=== PATIENT | male | born 1965 | race Caucasian/White ===

== ENCOUNTER 2019-12-13 11:28 | Outpatient (CLI) | payer MEDICAID, SELFPAY ==
--- NOTE | 2019-12-13 11:40 | XR_ITS ---
WS: [id number] RIGHT HAND: 3 VIEW(S) TECHNIQUE: PA, oblique and lateral. HISTORY: RIGHT HAND PAIN, ABSCESS RIGHT HAND COMPARISON: None available. No acute fracture or dislocation. Focal soft tissue swelling over the dorsal surface of the hand at the level of the metacarpal heads. No underlying bone abnormality. No air in the soft tissues. XR/XR hand RT min 3V* [id number] IMPRESSION: Focal soft tissue edema over the dorsum of the hand. No osteomyelitis.
== END 2019-12-13 11:29 | disposition home or self-care (01) ==
PROVIDERS: PCP Nurse Practitioner Family; Visit Provider Nurse Practitioner Family
DX: M79.641 Pain in right hand (principal); L02.511 Cutaneous abscess of right hand; M79.9 Soft tissue disorder, unspecified
CPT/HCPCS: 73130

== ENCOUNTER 2019-12-17 17:37 | Emergency (ER) | payer MEDICAID, SELFPAY ==
[2019-12-17 18:00] VITALS: BP 134/86; PULSE 87; RESP 19; TEMP 36.7; O2SAT 98; BMI 21.4
--- NOTE | 2019-12-17 18:08 | ED_ITS ---
Entered by Poly Tolentino, acting as scribe for Mahendra Mauro MD Dec 17, 2019 17:37 HPI - Skin/Abscess/Foreign Bdy General: Chief complaint: Skin/Abscess/Foreign Body Stated complaint: hand pain Time Seen by Provider: 12/17/19 18:07 Source: patient and family Mode of arrival: ambulatory Limitations: no limitations History of Present Illness: HPI narrative: 54 yo male presents to ED with an abscess on his R hand. The patient states he had a piece of wire stuck in his R hand about 2 weeks ago. He pulled out the wire and a lot of infection came out. He saw his PCP and was placed on Clindamycin but the wound was not drained. He said the wound is doing better but is still very painful and is open. MD complaint: abscess/boil Onset (ago): week(s) (2) Tetanus up to date: unsure Location: R hand Severity: severe Quality: sharp and constant Pain Consistency: constant Relieving factors: none Exacerbating factors: movement Context: other (wire stuck in R hand) Associated symptoms: Reports no associated symptoms; Deny chills, fever(s), nausea or vomiting Treatments prior to arrival: antibiotic (Clindamycin) Review of Systems Const: Denies: fever or chills Eyes: Denies: change in vision ENMT: Denies: throat pain or mouth pain Card: Denies: chest pain Resp: Denies: shortness of breath GI: Denies: abdominal pain, nausea, vomiting or diarrhea Musc: Denies: back pain or joint pain Skin/Breast: Denies: rash Neuro: Denies: headache or behavioral changes Psych: Denies: depression Endo: Denies: excessive urination Ganesh/Lymph: Denies: easy bruising All/Imm: Denies: hives PFSH ED PFSH: Statuses (acute, chronic, etc) shown below reflect problem list status as previously entered and may not be historically accurate Social History Smoking and tobacco status: current every day smoker Physical Exam Const: COMMON NORMALS: no apparent distress and healthy appearing HENMT: COMMON NORMALS: normocephalic and external nose normal HEAD & SCALP: normocephalic NOSE: external nose normal and no nasal discharge (nasal dischage) Eye: COMMON NORMALS: PERRL PUPIL: Yes PERRL Neck/C-Spine: COMMON NORMALS: full ROM and no lymphadenopathy Chest: COMMONS NORMALS: inspection of chest normal Resp: COMMON NORMALS: normal respiratory effort and clear to auscultation bilaterally AUSCULTATION: clear to auscultation bilaterally Cardio: COMMON NORMALS: regular rate and regular rhythm RATE: regular rate RHYTHM: regular rhythm GI: COMMON NORMALS: soft to palpation PALPATION: Yes soft Extremity: COMMON NORMALS: normal to inspection, full ROM and normal capillary refill Psych: COMMON NORMALS: mental status grossly normal and cooperative Skin: NARRATIVE SKIN EXAM: 2 cm last abscess to the right thenar eminence of his palm with no joint or thumb involvement. He has full range of motion of his thumb with no pain. Procedures Abscess I/D Site: hand Side (if applicable): right Local Anesthetic: lidocaine 1% Technique: incised with #11 blade Amount of fluid expressed (mL): 10 Irrigation: No Packing used?: none Complications: pain Course Vital Signs: Vital signs: Vital Signs Temperature 98.1 F 12/17/19 18:00 Pulse Rate 87 12/17/19 18:00 Respiratory Rate 19 H 12/17/19 18:00 Blood Pressure 134/86 12/17/19 18:00 Pulse Oximetry 98 12/17/19 18:00 MDM - Skin/Abscess/Foreign Bdy MDM Narrative: Medical decision making narrative: Patient presents here with abscess to right thenar eminence. Patient has no foreign body noted. I incised and drained the abscess. Patient is well-appearing here and is stable for discharge. Imaging Data^: right hand: Attestation: I personally reviewed and interpreted this imaging study as follows: My impression: no acute foreign body Discharge Plan Discharge Patient Disposition: Home, Self-Care Clinical Impression: Abscess of skin or subcutaneous tissue Qualifiers: Site of cutaneous abscess: extremity Site of cutaneous abscess of extremity: hand Laterality: right Qualified Code(s): L02.511 - Cutaneous abscess of right hand Condition: Stable Prescriptions: No Action clindamycin HCl 300 mg capsule 300 mg PO Q6H RF: 0 Discharge Orders: Discharge Order (Routine); Ordered 12/17/19 Ordered By: Mahendra Mauro Referrals: AGUSTIN KEARNS FNP [Primary Care Provider] - 4-7 days Discharge Diet: Advance as tolerated Discharge Activity: Resume usual activity Patient Instructions: Abscess (ED) Coding Level of Care Code ED Building Performance Specialist for Chg Fwdaniela The documentation recorded by the Randa arndt Valerie R, accurately reflects the service I personally performed and the decisions made by Nj adams Korby, MD Dec 17, 2019 17:37
--- NOTE | 2019-12-17 18:10 | XRR_ITS ---
PROCEDURE INFORMATION: Exam: XR Right Hand Exam date and time: 12/17/2019 6:36 PM Age: 54 years old Clinical indication: Injury or trauma; Injury history: Piece of metal in hand; Initial encounter; Puncture; Right TECHNIQUE: Imaging protocol: XR Right hand. Views: 3 or more views. COMPARISON: CR XR hand RT min 3V* [id number] 12/13/2019 11:44 AM FINDINGS: Bones/joints: Negative for acute bony abnormality Soft tissues: Prominent soft tissues are present between the 1st and 2nd metacarpal. These findings likely represent edema. Negative for metallic soft tissue foreign bodies. XR/XR hand RT min 3V* [id number] IMPRESSION: No acute findings. Soft tissue edema between the 1st and 2nd metacarpal. Negative for metallic soft tissue foreign body
[2019-12-17] MEDS: HYDROcodone-acetaminophen 7.5-325 mg Tablet 1 TAB PO (18:46)
[2019-12-17 18:57] VITALS: BP 140/86; PULSE 102; RESP 18; TEMP 36.6; O2SAT 99
[2019-12-17 19:02] VITALS: BP 140/86; PULSE 86; RESP 14; TEMP 36.4; O2SAT 99
== END 2019-12-17 19:04 | disposition home or self-care (01) ==
PROVIDERS: Emergency Provider Emergency Medicine; PCP Nurse Practitioner Family
DX: L02.511 Cutaneous abscess of right hand (principal); F17.210 Nicotine dependence, cigarettes, uncomplicated
CPT/HCPCS: 10060; 73130; 99281

== ENCOUNTER 2019-12-27 13:56 | Outpatient (RCR) | payer MEDICAID, SELFPAY | END 2020-01-22 23:59 | disposition home or self-care (01) | LOC: WOUND 13:56 | PROVIDERS: PCP Nurse Practitioner Family; Visit Provider Nurse Practitioner Family | DX: L98.492 Non-pressure chronic ulcer of skin of other sites with fat layer exposed (principal) | CPT/HCPCS: 99204; G0463 ==

== ENCOUNTER → 2021-01-01 12:44 | Outpatient (BNVA) | payer MEDICAID, SELFPAY | PROVIDERS: PCP Nurse Practitioner Family; Visit Provider Internal Medicine Cardiovascular Disease | DX: I10 Essential (primary) hypertension (principal); I49.9 Cardiac arrhythmia, unspecified | CPT/HCPCS: 80048; 83735 ==

== ENCOUNTER 2021-01-31 12:56 | Outpatient (CLI) | payer MEDICAID, SELFPAY ==
--- NOTE | 2021-01-31 12:45 | US_ITS ---
WS: [id number] SCROTAL ULTRASOUND EXAMINATION CLINICAL INFORMATION: R10.32 - Left lower quadrant pain COMPARISON: None. FINDINGS: Status post left inguinal hernia repair. No evidence of recurrent inguinal hernia or fluid collection. TESTES Normal in size and echotexture, without focal lesion. Color Doppler: Normal color Doppler flow pattern. Right testes size: 3.7 cm x 2.5 cm x 2.0 cm. Left testes size: 3.6 cm x 2.3 cm x 1.9 cm. EPIDIDYMIDES Normal in size and echotexture Color Doppler: Normal color Doppler flow pattern. Right epididymal cyst. Right epididymis size: 0.7 cm x 0.9 cm x 0.9 cm. Left epididymitis size: 0.7 cm x 0.8 cm x 0.9 cm. HYDROCELE Bilateral hydroceles left greater than right. VARICOCELE Bilateral varicoceles right greater than left. OTHER FINDINGS Incidental inguinal lymph nodes. US/US scrotum [id number] IMPRESSION: 1. Status post left inguinal hernia repair. No evidence of recurrent inguinal hernia or fluid collection. 2. Normal testicles 3. Right epididymal cysts. 4. Bilateral varicoceles right greater than left. 5. Small bilateral hydroceles left greater than right.
== END 2021-01-31 12:57 | disposition home or self-care (01) ==
PROVIDERS: PCP Nurse Practitioner Family; Visit Provider Surgery
DX: R10.32 Left lower quadrant pain (principal); N43.3 Hydrocele, unspecified; I86.1 Scrotal varices; N50.3 Cyst of epididymis
CPT/HCPCS: 76870

== ENCOUNTER 2021-02-12 10:39 | Outpatient (CLI) | payer MEDICAID, SELFPAY ==
[2021-02-12 10:59] VITALS: BMI 22.0
--- NOTE | 2021-02-12 11:05 | ECG_ITS ---
[facility] Test Date: 2021-02-12 Pat Name: Bob Oliveros Department: Room: Gender: Male Rn Hospice: : 1965 Requested By: Curry Rutledge Order Number: [id number] Mary Beth MD: Curry Rutledge M.D. Interpretive Statements NAME OF STUDY: TREADMILL STRESS ECHOCARDIOGRAM INDICATION: Chest Pain PROCEDURE: The baseline electrocardiogram showed normal sinus rhythm with normal ST-Ts. At the baseline, the patient's blood pressure was 154/89 mm Hg with a heart rate of 80. The patient exercised for 9 minutes and 4 seconds on a standard Emiliano protocol. Patient attained a maximum heart rate of 143 beats per minute(86% of the maximum predicted heart rate) with a blood pressure at the peak exercise of 233/80 mm Hg. The EKG at the peak exercise revealed no significant changes. Patient did not have any chest pain or any significant arrhythmis with the exercise The echocardiographic pictures were taken at the baseline, immediate post exercise and during the recovery phase, at the standard views. During the recovery phase, there were no new changes. Blood pressure at the end of the recovery phase was 149/80 mm Hg with a heart rate of 96 per minute. CONCLUSION: 1. No significant EKG changes with the [treadmill exercise 2. No exercise-induced chest pain or cardiac arrhythmia 3. Fair exercise tolerance, attained a maximum of 10.2 METs 4. Echocardiographic pictures were taken at the standard views; see separate report. Electronically Signed On 02-23-2021 16:44:21 CDT by Curry Rutledge M.D. [id number]
--- NOTE | 2021-02-12 11:30 | USCV_ITS ---
Stress Echo Bob Oliveros Age: 56 Gender: M : 1965 Exam Date: 02/12/2021 11:16 Ordering Phys: Curry Rutledge MD ([email or web address]) Technologist: Exam Location: [facility] [place] Indication: chest pain/ htn Rhythm: Sinus Patient History: Chest pain , Hypertension Cardiac Medications: carvedilol Medications in past 24 hours: Contrast: Stress Results Protocol: Modified Emiliano Total dose(mL): Exercise Duration (min:sec): 9:04 METS: 10.2 Resting HR: 80 Resting BP: 154 / 99 Peak HR: 143 Peak BP: 133 / 104 Max Predicted HR: 166 86 % Max Predicted HR Target HR: 141 Double Product: 41005 Stress Summary: The patient's target heart rate was achieved BP Response: Normal Reason for Termination: Test terminated after reaching target heart rate (85% max predicted) Cardiac Symptoms: None ECG Analysis Resting ECG: Please see separate report Stress ECG: Please see separate report Arrhythmia: Please see separate report MEASUREMENTS (Male/Female) Normal Values FINDINGS The baseline echocardiogram revealed normal LV size with a slightly diminished ejection fraction of 50%. The basal and mid septum and anteroseptal segments were found to be mildly hypokinetic. The aortic root was of normal size. Aortic and mitral valve morphology appears to be normal. With the peak exercise, there was slight augmentation of the baseline mid septum and anteroseptal segments. All the other segments had a good augmentation CONCLUSIONS Possibly normal echocardiographic response to stress, suggesting no significant coronary ischemia Dr Curry Rutledge MD [facility] (Electronically Signed) Final Date: 13 February 2021 10:07 S
[2021-02-12 11:45] VITALS: BP 149/80; PULSE 96
== END 2021-02-12 10:40 | disposition home or self-care (01) ==
PROVIDERS: PCP Nurse Practitioner Family; Visit Provider Internal Medicine Cardiovascular Disease
DX: I10 Essential (primary) hypertension (principal); R07.9 Chest pain, unspecified
CPT/HCPCS: 93017; 93350

== ENCOUNTER 2021-04-04 10:38 | Inpatient (IN) | payer MEDICAID, SELFPAY ==
--- NOTE | 2021-04-04 10:42 | ED_ITS ---
HPI - Abdominal Pain General: Chief Complaint: Abdominal Pain Stated Complaint: ABD PAIN, N/V, L SIDE TENDERNESS Time Seen by Provider: 04/04/21 10:39 Source: patient Mode of arrival: wheelchair Limitations: no limitations History of Present Illness: HPI narrative: abd pain left side, NV MD elicited complaint: abdominal pain Pain Consistency: constant Location: LLQ Severity: moderate Quality: sharp Radiation: LLQ Associated Symptoms: Reports nausea and vomiting; Denies diarrhea, fever(s) and hematemesis Review of Systems General: Reports: 10 or more systems reviewed and unremarkable except in HPI and below Const: Denies: fever(s) GI: Reports: abdominal pain, nausea and vomiting; Denies: hematemesis or diarrhea PFSH ED PFSH: Medical History Bipolar 1 disorder Chest pain History of amputation of finger History of hypertension Hx of chest pain Hx of migraine headaches OCD (obsessive compulsive disorder) Schizo affective schizophrenia Tobacco use Surgical History Hx of shoulder surgery Family History Mother Myocardial infarction CAD (coronary artery disease) Diabetes Lung disease Stroke Father Myocardial infarction Stroke Father CAD (coronary artery disease) Grandfather Stroke Other FH: Hampton's chorea Denies family history of Clotting disorder Dementia Chronic kidney disease (CKD) Suicide Anesthesia complication Bleeding disorder Cancer Social History Smoking and tobacco status: current every day smoker cigarettes Alcohol intake: former Physical Exam Const: COMMON NORMALS: no acute distress, patient oriented x3, no limitations and alert GENERAL APPEARANCE: cooperative and comfortable ORIENTATION/CONSCIOUSNESS: Yes awake, Yes oriented to person, Yes oriented to place and Yes oriented to time HENMT: COMMON NORMALS: normocephalic, atraumatic, external ears normal, EAC's normal, TM's normal bilaterally and Normal external nose present HEAD & SCALP: normal to inspection, normocephalic and atraumatic FACE & SINUS: normal facial exam, sinuses nontender and face symmetric NOSE: Normal external nose present, Normal nares present and No nasal discharge present EXTERNAL EAR: Yes external ears normal EXTERNAL AUDITORY CANAL: EAC's normal TYMPANIC MEMBRANE: TM's normal bilaterally MOUTH: Normal oral and palatal mucosa present, lip normal and tongue normal THROAT: posterior oropharynx normal, tonsils normal and uvula midline Eye: COMMON NORMALS: Equal, round and reactive pupils present, EOMs intact bilaterally and conjunctivae normal GENERAL EYE: appearance normal, both eyes and all related structures and normal light reflex EYELID: eyelids normal CONJUNCTIVA: Yes conjunctivae normal PUPIL: Yes Equal, round and reactive pupils present EOM: Yes EOM abnormal DIRECT OPHTHALMOSCOPY: Yes normal light reflex Neck/C-Spine: COMMON NORMALS: full ROM, no lymphadenopathy, supple, no meningeal signs, no JVD and Thyroid normal GENERAL: Yes normal visual inspection THYROID: Thyroid normal CERVICAL SPINE: Yes cervical ROM normal and Yes normal cervical lordosis Lymph: LYMPHATIC: no lymphadenopathy noted Chest: COMMONS NORMALS: normal inspection of the chest and normal palpation of entire chest wall Resp: COMMON NORMALS: normal respiratory effort, No retractions and clear to auscultation bilaterally AUSCULTATION: clear to auscultation bilaterally Cardio: COMMON NORMALS: no JVD, regular rate, regular rhythm, S1 normal heart sound present, S2 normal heart sound present, No gallops present (Cardio), No clicks present (Cardio), No murmurs present (Cardio), No rub (Cardio) and Peripheral pulses 2+ throughout RATE: regular rate RHYTHM: regular rhythm HEART SOUNDS: S1 normal heart sound present and S2 normal heart sound present PERIPHERAL PULSES: Peripheral pulses 2+ throughout GI: COMMON NORMALS: Normal to inspection, nondistended, normoactive bowel sounds present, Soft to palpation, non-tender and no masses AUSCULTATION: Yes normoactive bowel sounds PALPATION: Yes Soft to palpation, Yes Tenderness to palpation present (GI) Details: LLQ and Yes Guarding due to palpation present (GI) in the LLQ RECTAL EXAM: Yes deferred : COMMON NORMALS: Yes no CVA tenderness BLADDER/KIDNEY EXAM: Yes no CVA tenderness Back/Pelvis: COMMON NORMALS: no CVA tenderness, thoracic and lumbar spine normal to inspection, no thoracic nor lumbar tenderness and thoraco-lumbar ROM normal Extremity: COMMON NORMALS: normal to inspection, full ROM, capillary refill normal, no joint enlargement, no clubbing, cyanosis or edema, no calf tenderness and no pedal edema GENERAL: Yes normal exam except as noted Neuro: COMMON NORMALS: patient oriented x3, moves all extremities, no focal motor deficits, no sensory deficits noted and gait normal SENSORIU M/ORIENTATION: Yes alert, Yes oriented to person, Yes oriented to place and Yes oriented to time MENINGEAL SIGNS: Yes no meningeal signs Psych: COMMON NORMALS: mental status grossly normal, Normal thought process present, cooperative, normal affect, speech normal and activity/motor behavior normal SPEECH: Yes normal speech THOUGHT PROCESS: Normal thought process present Skin: COMMON NORMALS: no rashes or lesions noted, no wounds and turgor normal GENERAL SKIN EXAM: no rashes or lesions noted and turgor normal Course ED course: Pt presents to ER with complaints of ABD pain and NV with no diarrhea. Pt LLQ is noticably tender and he is guarding during examination. CT abd pelvis and labs ordered. Pain and nausea meds pending. Reevaluation(s): Reevaluation #1: Pt has 3mm stone in left distal ureter. Pain meds readminstered and is improving now. Awaiting lactic acid. Likely indication for admission. IV antibx started. UTI present with positve leuk estrase, nitrates, and over 40-50 WBCs. CBC reveals WBC of 19.8. Time: 14:11 Consultations: Consultation #1: Pt admit outpatient to Dr. Casiano for UTI and kidney stone. Lactic normal. WBC elevated. Afebrile. Time: 15:40 Consultation #2: Awaiting to hear back from Dr. Casiano; checking with Dr. Gandhi. Time: 16:11 Vital Signs: Vital signs: Vital Signs Temperature 98.4 F 04/04/21 10:58 Pulse Rate 87 04/04/21 14:53 Respiratory Rate 16 04/04/21 14:53 Blood Pressure 136/77 04/04/21 14:53 Pulse Oximetry 97 04/04/21 14:53 MDM - Abdominal Pain Lab Data: Labs: Lab Results 04/04/21 04/04/21 04/04/21 Range/Units 11:09 11:09 12:50 WBC 19.8 H (4.0-10.0) 10^3/ uL RBC 5.87 H (4.1-5.3) 10^6/u L Hgb 17.6 H (11.7-16.6) g/dL Hct 53.5 H (42.0-52.0) % MCV 91.1 (80-94) fL MCH 30.0 (28.0-34.0) pg MCHC 32.9 (30.0-36.0) g/dL RDW 12.5 (12.1-15.1) % Plt Count 312 (130-400) 10^3/c mm MPV 11.3 H (7.4-10.4) fL Neut % (Auto) 81.8 % Lymph % (Auto) 10.1 % [place] % (Auto) 6.1 % Eos % (Auto) 0.7 % Baso % (Auto) 0.7 % Neut # (Auto) 16.26 H (1.8-7.7) 10^3/u L Lymph # (Auto) 2.0 (0.8-4.8) 10^3/u L [place] # (Auto) 1.2 H (0.2-0.9) 10^3/u L Eos # (Auto) 0.1 (0.0-0.8) 10^3/u L Baso # (Auto) 0.1 (0.0-0.1) 10^3/u L Nucleated RBC % (a uto) 0 % Nucleated RBCs # 0.0 /100WBC Sodium 140 (136-145) mmol/L Potassium 4.6 (3.5-5.1) mmol/L Chloride 102 (98-107) mmol/L Carbon Dioxide 27 (22-29) mmol/L Anion Gap 15.6 (5-19) BUN 17 (6-20) mg/dL Creatinine 1.2 (0.7-1.2) mg/dL GFR Calculation 63.1 L (90-130) mL/min Glucose 142 H (65-115) mg/dL Calculated Osmolal ity 294 (285-295) mOsm/k g Lactate (0.5-2.2) mmol/L Calcium 10.2 (8.5-10.5) mg/dL Total Bilirubin 0.6 (0.15-1.2) mg/dL AST 17 (0-40) U/L ALT 12 (0-41) U/L Alkaline Phosphata se 99 (40-130) IU/L C-Reactive Protein 1.8 (0.0-4.9) mg/L Total Protein 8.3 (6.6-8.7) g/dL Albumin 5.1 (3.5-5.2) g/dL Globulin 3.2 (1.3-4.6) g/dL Amylase 62 (28-100) U/L Lipase 22 (13-60) U/L Urine Color Brown (Yellow) Urine Appearance Cloudy (CLEAR) Urine pH 5 (5-7) Ur Specific Gravit y 1.015 (1.005-1.030) Urine Protein Trace (Negative) Urine Glucose (UA) Norm (Normal) Urine Ketones Negative (Negative) Urine Blood 3+ H (Negative) Urine Nitrate Positive H (Negative) Urine Bilirubin Neg (Negative) Urine Urobilinogen Norm (Negative) mg/dL Ur Leukocyte Cande ase 2+ H (Negative) Urine RBC 40-50 H (0-2) /hpf Urine WBC 25-40 H (0-5) /hpf Ur Squamous Epith Cells 0-4 H (0-5) /hpf Amorphous Sediment Not Reportable Urine Bacteria 4+ H (NONE) /hpf 04/04/21 Range/Units 14:20 WBC (4.0-10.0) 10^3/ uL RBC (4.1-5.3) 10^6/u L Hgb (11.7-16.6) g/dL Hct (42.0-52.0) % MCV (80-94) fL MCH (28.0-34.0) pg MCHC (30.0-36.0) g/dL RDW (12.1-15.1) % Plt Count (130-400) 10^3/c mm MPV (7.4-10.4) fL Neut % (Auto) % Lymph % (Auto) % [place] % (Auto) % Eos % (Auto) % Baso % (Auto) % Neut # (Auto) (1.8-7.7) 10^3/u L Lymph # (Auto) (0.8-4.8) 10^3/u L [place] # (Auto) (0.2-0.9) 10^3/u L Eos # (Auto) (0.0-0.8) 10^3/u L Baso # (Auto) (0.0-0.1) 10^3/u L Nucleated RBC % (a uto) % Nucleated RBCs # /100WBC Sodium (136-145) mmol/L Potassium (3.5-5.1) mmol/L Chloride (98-107) mmol/L Carbon Dioxide (22-29) mmol/L Anion Gap (5-19) BUN (6-20) mg/dL Creatinine (0.7-1.2) mg/dL GFR Calculation (90-130) mL/min Glucose (65-115) mg/dL Calculated Osmolal ity (285-295) mOsm/k g Lactate 0.9 (0.5-2.2) mmol/L Calcium (8.5-10.5) mg/dL Total Bilirubin (0.15-1.2) mg/dL AST (0-40) U/L ALT (0-41) U/L Alkaline Phosphata se (40-130) IU/L C-Reactive Protein (0.0-4.9) mg/L Total Protein (6.6-8.7) g/dL Albumin (3.5-5.2) g/dL Globulin (1.3-4.6) g/dL Amylase (28-100) U/L Lipase (13-60) U/L Urine Color (Yellow) Urine Appearance (CLEAR) Urine pH (5-7) Ur Specific Gravit y (1.005-1.030) Urine Protein (Negative) Urine Glucose (UA) (Normal) Urine Ketones (Negative) Urine Blood (Negative) Urine Nitrate (Negative) Urine Bilirubin (Negative) Urine Urobilinogen (Negative) mg/dL Ur Leukocyte Cande ase (Negative) Urine RBC (0-2) /hpf Urine WBC (0-5) /hpf Ur Squamous Epith Cells (0-5) /hpf Amorphous Sediment Urine Bacteria (NONE) /hpf Imaging Data ^: CT Abd/Pel: Radiologist's impression: [address] [address] [address] Scan Report Signed Patient: Bob Oliveros Unit #: [id number] : 1965 Age/Sex: 56 / M ADM Date: 04/04/21 Loc: ER Room/Bed: Attending Dr: Ordering Provider/Ordering MD: Fe Cam NP Date of Service: 04/04/21 Procedure(s): CT abdomen wo/w con [id number] Accession Number(s): [id number] Report Number: [id number] WS: [id number] CT ABDOMEN/PELVIS WITH AND WITHOUT CONTRAST. HISTORY: Left-sided tenderness with abdominal pain, nausea and vomiting. Technique: All [facility] scans at [facility] use at least one of these dose optimization techniques: automated exposure control; mA and/or kV adjustment per patient size (includes targeted exams where dose is matched to clinical indication); or iterative reconstruction. DLP: 1390.83 mGy.cm COMPARISON: 10/15/2017. Contrast: Omnipaque 300; 95 cc IV. Lung bases are clear. No cardiomegaly. Small hiatal hernia. Normal size liver and spleen. No bile duct dilatation. Normal portal vein. Negative gallbladder. Negative adrenal glands. There are a few small calcifications within the pancreas. No duct dilatation or acute pancreatitis. Very mild atherosclerosis aorta. No ascites or adenopathy. There are a few small retroperitoneal and mesenteric lymph nodes which may be reactive. RIGHT kidney: Normal size kidney with no obstruction. Cortical cyst lower pole measures 6 mm. LEFT kidney: Mildly enlarged LEFT kidney with perinephric stranding and edema. Nonobstructing 2 mm calcification in the lower pole. Mild hydro-ureteronephrosis secondary to a 3 mm calcification in the distal ureter. There is delayed excretion from the LEFT kidney. No abscess. Mild constipation. The appendix is only partially visualized and normal. No GI tract obstruction. Mild prostate gland enlargement with moderate prostate calcifications. Small bilateral hydroceles. No osteoblastic or osteolytic bone disease. CT/CT abdomen wo/w con [id number] IMPRESSION: 1. Mild LEFT hydroureteronephrosis secondary to a 3 mm distal ureteral calcification. Delayed excretion from the LEFT kidney. 2. Mild fecal retention. 3. Visualized appendix is normal. Dictated By: Tomeka Choe DO Signed By: Tomeka Choe DO Signed Date/Time: 04/04/21 1242 DD/ 1234 Discharge Plan Discharge Prescriptions: No Action aspirin [Adult Aspirin Regimen] 81 mg tablet,delayed release (DR/EC) 81 mg PO QAM RF: 0 nitroglycerin [Nitrostat] 0.4 mg tablet, sublingual 0.4 mg sublingual Q5M PRN (Reason: Chest Pain) RF: 0 carvedilol 6.25 mg tablet 6.25 mg PO BID 30 Days Qty: 60 RF: 5 ibuprofen 200 mg Tablet 800 mg PO PRN RF: 0 lisinopril-hydrochlorothiazide 10-12.5 mg tablet 1 tab PO DAILY RF: 0 Coding Level of Care Code ED Manager Market Research for Chrisg Fwd Exam Comprehensive
[2021-04-04 10:58] VITALS: BP 169/110; PULSE 84; RESP 18; TEMP 36.9; O2SAT 96; BMI 22.8
--- NOTE | 2021-04-04 11:22 | CT_ITS ---
WS: [id number] CT ABDOMEN/PELVIS WITH AND WITHOUT CONTRAST. HISTORY: Left-sided tenderness with abdominal pain, nausea and vomiting. Technique: All CT scans at [facility] use at least one of these dose optimization techniq ues: automated exposure control; mA and/or kV adjustment per patient size (includes targeted exams wh ere dose is matched to clinical indication); or iterative reconstruction. DLP: 1390.83 mGy.cm COMPARISON: 10/15/2017. Contrast: Omnipaque 300; 95 cc IV. Lung bases are clear. No cardiomegaly. Small hiatal hernia. Normal size liver and spleen. No bile duct dilatation. Normal portal vein. Negative gallbladder. Nega tive adrenal glands. There are a few small calcifications within the pancreas. No duct dilatation or acute pancreatitis. Very mild atherosclerosis aorta. No ascites or adenopathy. There are a few small retroperitoneal and mesenteric lymph nodes which may be reactive. RIGHT kidney: Normal size kidney with no obstruction. Cortical cyst lower pole measures 6 mm. LEFT kidney: Mildly enlarged LEFT kidney with perinephric stranding and edema. Nonobstructing 2 mm ca lcification in the lower pole. Mild hydro-ureteronephrosis secondary to a 3 mm calcification in the d istal ureter. There is delayed excretion from the LEFT kidney. No abscess. Mild constipation. The appendix is only partially visualized and normal. No GI tract obstruction. Mild prostate gland enlargement with moderate prostate calcifications. Small bilateral hydroceles. No osteoblastic or osteolytic bone disease.
--- NOTE | 2021-04-04 11:30 | CT_ITS ---
WS: [id number] CT ABDOMEN/PELVIS WITH AND WITHOUT CONTRAST. HISTORY: Left-sided tenderness with abdominal pain, nausea and vomiting. Technique: All CT scans at [facility] use at least one of these dose optimization techniq ues: automated exposure control; mA and/or kV adjustment per patient size (includes targeted exams wh ere dose is matched to clinical indication); or iterative reconstruction. DLP: 1390.83 mGy.cm COMPARISON: 10/15/2017. Contrast: Omnipaque 300; 95 cc IV. Lung bases are clear. No cardiomegaly. Small hiatal hernia. Normal size liver and spleen. No bile duct dilatation. Normal portal vein. Negative gallbladder. Nega tive adrenal glands. There are a few small calcifications within the pancreas. No duct dilatation or acute pancreatitis. Very mild atherosclerosis aorta. No ascites or adenopathy. There are a few small retroperitoneal and mesenteric lymph nodes which may be reactive. RIGHT kidney: Normal size kidney with no obstruction. Cortical cyst lower pole measures 6 mm. LEFT kidney: Mildly enlarged LEFT kidney with perinephric stranding and edema. Nonobstructing 2 mm ca lcification in the lower pole. Mild hydro-ureteronephrosis secondary to a 3 mm calcification in the d istal ureter. There is delayed excretion from the LEFT kidney. No abscess. Mild constipation. The appendix is only partially visualized and normal. No GI tract obstruction. Mild prostate gland enlargement with moderate prostate calcifications. Small bilateral hydroceles. No osteoblastic or osteolytic bone disease. CT/CT abdomen pelvis wo/w [id number] IMPRESSION: 1. Mild LEFT hydroureteronephrosis secondary to a 3 mm distal ureteral calcifi cation. Delayed excretion from the LEFT kidney. 2. Mild fecal retention. 3. Visualized appendix is normal.
[2021-04-04 11:33] LABS: Basophils # 0.1 10^3/uL (0.0-0.1); Basophils % 0.7 %; Eosinophils # 0.1 10^3/uL (0.0-0.8); Eosinophils % 0.7 %; Hematocrit 53.5 % (42.0-52.0); Hemoglobin 17.6 g/dL (11.7-16.6); Lymphocytes % 10.1 %; Mean Corpuscular HGB Conc 32.9 g/dL (30.0-36.0); Mean Corpuscular Volume 91.1 fL (80-94); Mean Platelet Volume 11.3 fL (7.4-10.4); Monocytes # 1.2 10^3/uL (0.2-0.9); Monocytes % 6.1 %; Neutrophils # 16.26 10^3/uL (1.8-7.7); Neutrophils % 81.8 %; Nucleated Red Blood Cells % 0 %; Platelet Count 312 10^3/cmm (130-400); Red Blood Count 5.87 10^6/uL (4.1-5.3); Red Cell Distribution Width 12.5 % (12.1-15.1); White Blood Count 19.8 10^3/uL (4.0-10.0)
[2021-04-04 11:46] LABS: Alanine Aminotransferase 12 U/L (0-41); Albumin Level 5.1 g/dL (3.5-5.2); Alkaline Phosphatase 99 IU/L (40-130); Amylase 62 U/L (28-100); Anion Gap 15.6 (5-19); Aspartate Amino Transferase 17 U/L (0-40); Blood Urea Nitrogen 17 mg/dL (6-20); C Reactive Protein 1.8 mg/L (0.0-4.9); Calcium 10.2 mg/dL (8.5-10.5); Carbon Dioxide 27 mmol/L (22-29); Chloride 102 mmol/L (98-107); Globulin 3.2 g/dL (1.3-4.6); Glomerular Filtration Rate 63.1 mL/min (90-130); Glucose 142 mg/dL (65-115); Lipase 22 U/L (13-60); Osmolality Calculated 294 mOsm/kg (285-295); Potassium 4.6 mmol/L (3.5-5.1); Sodium 140 mmol/L (136-145); Total Bilirubin 0.6 mg/dL (0.15-1.2); Total Protein 8.3 g/dL (6.6-8.7)
[2021-04-04 11:47] VITALS: RESP 20
[2021-04-04] MEDS: morphine 4 mg/mL SDV 1 mL IVP (11:47)
[2021-04-04] MEDS: ondansetron 2 mg/ML SDV 2 mL 4 MG IVP (11:48)
[2021-04-04] MEDS: iohexol 300 mg/mL 100 mL Btl IV (12:26)
[2021-04-04 13:08] LABS: Protein Urine Trace (Negative); Specific Gravity, Urine 1.015 (1.005-1.030); Urine Appearance Cloudy (CLEAR); Urine Color Brown (Yellow); pH Urine 5 (5-7)
[2021-04-04 13:09] LABS: Add Urine Microscopic? YES; Bilirubin Urine Neg (Negative); Blood Urine 3+ (Negative); Glucose Urine UA Norm (Normal); Ketones Urine Negative (Negative); Leukocyte Esterase Urine 2+ (Negative); Nitrate Urine Positive (Negative); Urobilinogen Urine Norm (Negative)
[2021-04-04 13:11] VITALS: BP 174/102; PULSE 87; RESP 21; O2SAT 98
[2021-04-04] MEDS: ketorolac 30 mg/mL INJ IVP ×2 (13:46→22:12)
[2021-04-04] MEDS: cefTRIAXone 1,000 MG in sodium chloride 0.9% (plus) 50 ML 100 MG IV (13:46)
[2021-04-04 13:48] LABS: Bacteria Urine 4+ /hpf; RBC Urine 40-50 /hpf (0-2); Squamous Epithelial Cell Urine 0-4 /hpf (0-5); WBC Urine 25-40 /hpf (0-5)
[2021-04-04 13:49] LABS: Add Urine Culture? Yes
[2021-04-04] MEDS: tamsulosin 0.4 mg Capsule PO (14:04)
[2021-04-04] MEDS: sodium chloride 0.9% 500 ML 1000 ML IV (14:04)
[2021-04-04 14:53] VITALS: BP 136/77; PULSE 87; RESP 16; O2SAT 97
[2021-04-04 15:14] LABS: Lactate (Lactic Acid level) 0.9 mmol/L (0.5-2.2)
--- NOTE | 2021-04-04 16:59 | PM.HP ---
Providers/Chief Complaint Admitting Physician: Jocelyn Casiano MD Primary Care Provider: Cortney Matthew Chief Complaint: ABD PAIN, N/V, L SIDE TENDERNESS History of Present Illness Bob Oliveros is a 56 year old male who presented to the emergency room with chief complaint of abdominal pain, nausea, vomiting. Since has been going on for about a week or so and progressively worsening. Pain is located primarily in the left sided quadrants extending from mid abdomen down into the groin. It extends to the flank. It is sharp and severe. Worse with movement of any kind. He has been unable to get relief. Rates it at a 10 out of 10 at its worst. Initially fluctuated but has been constant. He had several episodes of vomiting today. Remains nauseated. Had a bowel movement this morning. Denies any diarrhea or constipation. Has noted some decreased urine output. Denied any hematuria. Has not had any fever. He has felt miserable. Work-up in the emergency room revealed a 3 mm left-ureteral kidney stone with some mild hydronephrosis as well as perinephric stranding. White count was 19,000. Lactic acid was normal. Urine showed 3+ blood with positive nitrites and leukocyte esterase. He received some IV fluids, Rocephin as well as pain control in the emergency room. He is being admitted for further evaluation and treatment. Review of Systems Const: Reports: change in appetite, change in weight (Weight loss) and malaise; Denies: fever(s) or chills ENMT: Reports: dry mouth Card: Denies: chest pain or palpitations Resp: Denies: dyspnea, productive cough or non-productive cough GI: Reports: abdominal pain, nausea, vomiting and diarrhea; Denies: constipation, hematochezia or melena : Reports: flank pain, difficulty urinating and oliguria; Denies: dysuria or hematuria Musc: Reports: other (Generalized aches and pains) Skin/Breast: Denies: rash or sores Neuro: Reports: other (Restless from the pain); Denies: headache(s) Ganesh/Lymph: Denies: easy bleeding Medications/Allergies Home Medications Medication Instructions Recorded Confirmed Last Taken Type aspirin 81 mg tablet,delayed 81 mg PO QAM 11/21/20 04/04/21 04/02/21 History release nitroglycerin 0.4 mg sublingual 0.4 mg SUBLINGUAL Q5M PRN 11/21/20 04/04/21 Unknown History tablet carvedilol 6.25 mg tablet 6.25 mg PO BID 30 Days #60 tab 03/05/21 04/04/21 04/02/21 Rx ibuprofen 800 mg PO PRN 04/04/21 04/04/21 Unknown History lisinopril-hydrochlorothiazide 1 tab PO DAILY 04/04/21 04/04/21 Unknown History Allergies Allergy/AdvReac Type Severity Reaction Status Date / Time alprazolam [From Xanax] AdvReac Intermediate ADR-Agitate Verified 04/04/21 18:16 d Additional Medication Information I personally reviewed home medication list and medications received day of admission thus far. PFSH Acute PFSH: Medical History (Updated 04/04/21 @ 19:03 by Jocelyn Casiano MD) Bilateral varicoceles Bipolar 1 disorder History of hypertension History of kidney stones Hx of chest pain Hx of migraine headaches OCD (obsessive compulsive disorder) Schizo affective schizophrenia Tobacco use Ventricular arrhythmia Surgical History (Updated 04/04/21 @ 18:50 by Jocelyn Casiano MD) 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, right hand Hx of shoulder surgery S/P left inguinal hernia repair (~2016) Laparoscopic Transabdominal preperitoneal (CASSIA) approach Family History Mother Myocardial infarction CAD (coronary artery disease) Diabetes Lung disease Stroke Father Myocardial infarction Stroke Father CAD (coronary artery disease) Grandfather Stroke Other FH: [place]'s chorea Denies family history of Clotting disorder Dementia Chronic kidney disease (CKD) Suicide Anesthesia complication Bleeding disorder Cancer Social History (Updated 04/04/21 @ 18:52 by Jocelyn Casiano MD) Smoking and tobacco status: current every day smoker cigarettes Alcohol intake: former Substance/Drug Use: current Substance/Drug use frequency: daily Substance/Drug use type: Marijuana Vitals/I&O/Wt Last Vital Signs Temp 98.4 F 04/04/21 10:58 Pulse 87 04/04/21 14:53 Resp 16 04/04/21 14:53 BP 136/77 04/04/21 14:53 Pulse Ox 97 04/04/21 14:53 Weight last 48 hrs Weight 68.039 kg Physical Exam Narrative: EXAM NARRATIVE: Constitutional: Restless, thin build, obviously uncomfortable HEENT: Mild bitemporal wasting noted, dry mucous membranes, keeps his tongue protruded, extraocular movements intact Neck: Supple Respiratory: Clear to auscultation bilaterally Cardiovascular: Regular rate and rhythm Abdomen: Soft, decreased bowel sounds, tender to palpation in the mid left-sided abdomen extending into the left lower quadrant and left flank area, no rebound or guarding but unable to sit still : Presently unable to get in a position that I can adequately remove clothing to further examine Extremities: No pitting edema, loss of digits to the right hand Skin: Dry Neuro: Speech is clear, moves all extremities Psych: Easily agitated but also easily calm down Data : 04/04/21 11:09 04/04/21 11:09 Other data: Laboratory Results WBC 19.8 10^3/uL (4.0-10.0) H 04/04/21 11:09 RBC 5.87 10^6/uL (4.1-5.3) H 04/04/21 11:09 Hgb 17.6 g/dL (11.7-16.6) H 04/04/21 11:09 Hct 53.5 % (42.0-52.0) H 04/04/21 11:09 MCV 91.1 fL (80-94) 04/04/21 11:09 MCH 30.0 pg (28.0-34.0) 04/04/21 11:09 MCHC 32.9 g/dL (30.0-36.0) 04/04/21 11:09 RDW 12.5 % (12.1-15.1) 04/04/21 11:09 Plt Count 312 10^3/cmm (130-400) 04/04/21 11:09 MPV 11.3 fL (7.4-10.4) H 04/04/21 11:09 Neut % (Auto) 81.8 % 04/04/21 11:09 Lymph % (Auto) 10.1 % 04/04/21 11:09 [place] % (Auto) 6.1 % 04/04/21 11:09 Eos % (Auto) 0.7 % 04/04/21 11:09 Baso % (Auto) 0.7 % 04/04/21 11:09 Neut # (Auto) 16.26 10^3/uL (1.8-7.7) H 04/04/21 11:09 Lymph # (Auto) 2.0 10^3/uL (0.8-4.8) 04/04/21 11:09 [place] # (Auto) 1.2 10^3/uL (0.2-0.9) H 04/04/21 11:09 Eos # (Auto) 0.1 10^3/uL (0.0-0.8) 04/04/21 11:09 Baso # (Auto) 0.1 10^3/uL (0.0-0.1) 04/04/21 11:09 Nucleated RBC % (auto) 0 % 04/04/21 11:09 Nucleated RBCs # 0.0 /100WBC 04/04/21 11:09 Sodium 140 mmol/L (136-145) 04/04/21 11:09 Potassium 4.6 mmol/L (3.5-5.1) 04/04/21 11:09 Chloride 102 mmol/L (98-107) 04/04/21 11:09 Carbon Dioxide 27 mmol/L (22-29) 04/04/21 11:09 Anion Gap 15.6 (5-19) 04/04/21 11:09 BUN 17 mg/dL (6-20) 04/04/21 11:09 Creatinine 1.2 mg/dL (0.7-1.2) 04/04/21 11:09 GFR Calculation 63.1 mL/min (90-130) L 04/04/21 11:09 Glucose 142 mg/dL (65-115) H 04/04/21 11:09 Calculated Osmolality 294 mOsm/kg (285-295) 04/04/21 11:09 Lactate 0.9 mmol/L (0.5-2.2) 04/04/21 14:20 Calcium 10.2 mg/dL (8.5-10.5) 04/04/21 11:09 Total Bilirubin 0.6 mg/dL (0.15-1.2) 04/04/21 11:09 AST 17 U/L (0-40) 04/04/21 11:09 ALT 12 U/L (0-41) 04/04/21 11:09 Alkaline Phosphatase 99 IU/L (40-130) 04/04/21 11:09 C-Reactive Protein 1.8 mg/L (0.0-4.9) 04/04/21 11:09 Total Protein 8.3 g/dL (6.6-8.7) 04/04/21 11:09 Albumin 5.1 g/dL (3.5-5.2) 04/04/21 11:09 Globulin 3.2 g/dL (1.3-4.6) 04/04/21 11:09 Amylase 62 U/L (28-100) 04/04/21 11:09 Lipase 22 U/L (13-60) 04/04/21 11:09 Urine Color Brown (Yellow) 04/04/21 12:50 Urine Appearance Cloudy (CLEAR) 04/04/21 12:50 Urine pH 5 (5-7) 04/04/21 12:50 Ur Specific [place] 1.015 (1.005-1.030) 04/04/21 12:50 Urine Protein Trace (Negative) 04/04/21 12:50 Urine Glucose (UA) Norm (Normal) 04/04/21 12:50 Urine Ketones Negative (Negative) 04/04/21 12:50 Urine Blood 3+ (Negative) H 04/04/21 12:50 Urine Nitrate Positive (Negative) H 04/04/21 12:50 Urine Bilirubin Neg (Negative) 04/04/21 12:50 Urine Urobilinogen Norm mg/dL (Negative) 04/04/21 12:50 Ur Leukocyte Esterase 2+ (Negative) H 04/04/21 12:50 Urine RBC 40-50 /hpf (0-2) H 04/04/21 12:50 Urine WBC 25-40 /hpf (0-5) H 04/04/21 12:50 Ur Squamous Epith Cells 0-4 /hpf (0-5) H 04/04/21 12:50 Amorphous Sediment Not Reportable 04/04/21 12:50 Urine Bacteria 4+ /hpf (NONE) H 04/04/21 12:[address] 04/04/21 11:22 IMPRESSION: 1. Mild LEFT hydroureteronephrosis secondary to a 3 mm distal ureteral calcification. Delayed excretion from the LEFT kidney. 2. Mild fecal retention. 3. Visualized appendix is normal. TREADMILL STRESS ECHOCARDIOGRAM 02/12/2021 INDICATION: Chest Pain PROCEDURE: The baseline electrocardiogram showed normal sinus rhythm with normal ST-Ts. At the baseline, the patient's blood pressure was 154/89 mm Hg with a heart rate of 80. The patient exercised for 9 minutes and 4 seconds on a standard Emiliano protocol. Patient attained a maximum heart rate of 143 beats per minute(86% of the maximum predicted heart rate) with a blood pressure at the peak exercise of 233/80 mm Hg. The EKG at the peak exercise revealed no significant changes. Patient did not have any chest pain or any significant arrhythmis with the exercise The echocardiographic pictures were taken at the baseline, immediate post exercise and during the recovery phase, at the standard views. During the recovery phase, there were no new changes. Blood pressure at the end of the recovery phase was 149/80 mm Hg with a heart rate of 96 per minute. CONCLUSION: 1. No significant EKG changes with the [treadmill exercise 2. No exercise-induced chest pain or cardiac arrhythmia 3. Fair exercise tolerance, attained a maximum of 10.2 METs 4. Echocardiographic pictures were taken at the standard views; FINDINGS The baseline echocardiogram revealed normal LV size with a slightly diminished ejection fraction of 50%. The basal and mid septum and anteroseptal segments were found to be mildly hypokinetic. The aortic root was of normal size. Aortic and mitral valve morphology appears to be normal. With the peak exercise, there was slight augmentation of the baseline mid septum and anteroseptal segments. All the other segments had a good augmentation CONCLUSIONS Possibly normal echocardiographic response to stress, suggesting no significant coronary ischemia A&P Assessment and plan (1) Acute abdominal pain: Left-sided quadrants extending into the groin, left flank, associated with nausea and vomiting Status: Acute (2) Kidney calculus: Left ureteral, 3 mm Status: Acute (3) Hydronephrosis of left kidney: Mild secondary to kidney stone Status: Acute (4) Acute pyelonephritis: As evidenced by perinephric stranding, leukocytosis and urinalysis findings Status: Acute (5) Benign essential HTN: Normally on carvedilol and lisinopril/hydrochlorothiazide Status: Chronic (6) Ventricular arrhythmia: Notated in cardiology records, details not known Status: Chronic (7) Nicotine dependence, cigarettes, uncomplicated: Status: Chronic Additional A&P Information Mild hyperglycemia without a known history of diabetes Inpatient admission Continue IV antibiotics Continue IV fluids Pain control I discussed the case with Dr. Gandhi who will see Mr. At certain consultation We will maintain n.p.o. status for now until we discern if he will need to go to procedure tonight Continue home carvedilol Had stress test in January of this year that did not show significant ischemia Nicotine patch has been offered Smokes marijuana daily Check A1c in am Supportive care otherwise Consultants: Dr Gandhi Pending/ordered tests/procedures to follow: Urine cultures Lines/tubes: peripheral IVs DVT prophylaxis: SCDs, no pharmacological treatment secondary to anticipated intervention Plans, findings and concerns discussed with patient and female in the room with him with his permission and they were given an opportunity to ask questions. Anticipated Disposition: Home Code Status: Full Code Attestations Medical Necessity Statement*: Anticipated stay greater than two midnights inpatient with above findings. Currently requiring IV fluids, IV antibiotics and potential invasive intervention. 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
--- NOTE | 2021-04-04 19:46 | PC.NURSE ---
1924: Pt transported to room 251 per stretcher. Family member has all belongings with exception of deepak which pt. has on. Pt has no specific complaints at this time.
[2021-04-04 20:00] VITALS: BP 140/79; PULSE 95; RESP 18; TEMP 37.8; O2SAT 98
[2021-04-04 20:39] VITALS: PULSE 90; O2SAT 95
--- NOTE | 2021-04-04 20:39 | P.CONIM_ITS ---
Providers/Reason For Consult Consulting Physican/Specialty*: Urology/Gandhi Reason for Consult*: Left distal ureteral stone Attending Physician: Jocelyn Casiano MD Primary Care Provider: Cortney Matthew History of Present Illness History of Present Illness Bob Oliveros is a 56 year old male who have seen in the past for chronic no gross pathology was identified during work-up for that. He was scheduled to see me in February but failed to keep his appointment. He was admitted through the emergency department today for evidence of UTI and a left distal ureteral stone without sepsis. Stone was small, near the left UVJ, and associated only with mild hydronephrosis. Lactic acid was normal but urine did look infected. White count was elevated. CT scan: 3 mm Left UVJ stone He states he has had some off-and-on back pain for about a month over the last week though the pain has become much more severe and he is having increasing lower urinary tract symptoms including frequency urgency and feeling of incomplete emptying. Denies fever or chills. Has not passed stone since admission. Review of Systems Const: Reports: malaise; Denies: fever(s) or chills Eyes: Denies: change in vision ENMT: Denies: throat pain Card: Denies: chest pain or palpitations Resp: Denies: dyspnea or wheezing GI: Reports: abdominal pain, nausea and vomiting : Reports: flank pain, difficulty urinating, dysuria, urinary frequency, urinary urgency and urinary hesitancy Musc: Denies: joint redness or joint warmth Skin/Breast: Denies: rash or changing lesions Neuro: Denies: confusion, Slurred speech present or difficulty communicating thoughts Psych: Denies: anxiety or memory loss Endo: Denies: flushing Ganesh/Lymph: Denies: easy bruising or easy bleeding All/Imm: Denies: urticaria or throat swelling Meds/Allergies Home Medications and Allergies Home Medications Medication Instructions Recorded Confirmed Last Taken Type aspirin 81 mg tablet,delayed 81 mg PO QAM 11/21/20 04/04/21 04/02/21 History release nitroglycerin 0.4 mg sublingual 0.4 mg SUBLINGUAL Q5M PRN 11/21/20 04/04/21 Unknown History tablet carvedilol 6.25 mg tablet 6.25 mg PO BID 30 Days #60 tab 0404/04/21 04/02/21 Rx ibuprofen 800 mg PO PRN 04/04/21 04/04/21 Unknown History lisinopril-hydrochlorothiazide 1 tab PO DAILY 04/04/21 04/04/21 Unknown History Allergies Allergy/AdvReac Type Severity Reaction Status Date / Time alprazolam [From Xanax] AdvReac Intermediate ADR-Agitate Verified 04/04/21 18:16 d PFSH Acute PFSH: Medical History Bilateral varicoceles Bipolar 1 disorder History of hypertension History of kidney stones Hx of chest pain Hx of migraine headaches OCD (obsessive compulsive disorder) Schizo affective schizophrenia Tobacco use Ventricular arrhythmia Surgical History 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, right hand Hx of shoulder surgery S/P left inguinal hernia repair (~2016) Laparoscopic Transabdominal preperitoneal (CASSIA) approach Family History Mother Myocardial infarction CAD (coronary artery disease) Diabetes Lung disease Stroke Father Myocardial infarction Stroke Father CAD (coronary artery disease) Grandfather Stroke Other FH: [place]'s chorea Denies family history of Clotting disorder Dementia Chronic kidney disease (CKD) Suicide Anesthesia complication Bleeding disorder Cancer Social History Smoking and tobacco status: current every day smoker cigarettes Alcohol intake: former Substance/Drug Use: current Substance/Drug use frequency: daily Substance/Drug use type: Marijuana Vitals/I&O/Wt Last Vital Signs Temp 100.1 F H 04/04/21 20:00 Pulse 95 04/04/21 20:00 Resp 18 04/04/21 20:00 BP 140/79 04/04/21 20:00 Pulse Ox 98 04/04/21 20:00 04/04/21 04/04/21 04/04/21 06:59 14:59 22:59 Intake Total 50 / 50 Balance 50 / 50 Weight last 48 hrs Weight 150 lb Physical Exam Const: COMMON NORMALS: no acute distress, alert and well nourished GENERAL APPEARANCE: well kempt and well developed ORIENTATION/CONSCIOUSNESS: not confused HENMT: COMMON NORMALS: normocephalic and atraumatic HEAD & SCALP: normocephalic, atraumatic and other (Edentulous) Eye: COMMON NORMALS: conjunctivae normal and no scleral icterus CONJUNCTIVA: Yes conjunctivae normal Neck/C-Spine: COMMON NORMALS: full ROM GENERAL: Yes normal visual inspection Resp: COMMON NORMALS: normal respiratory effort EFFORT & INSPECTION: No labored and No Actively coughing GI: COMMON NORMALS: Soft to palpation PALPATION: Yes Soft to palpation and Yes Tenderness to palpation present (GI) : BLADDER/KIDNEY EXAM: Yes CVA tenderness MALE GROIN/PERINEUM EXAM: No ecchymosis and No hernia PENIS: normal penis MEATUS: meatus normal, no meatla discharge and No Blood at meatus present SCROTUM: Yes testes descended bilaterally, No edematous and No scrotal swelling TESTES: No absent testicle, No testicular tenderness, No testicular mass, Yes epididymides normal and No epididymal tenderness Back/Pelvis: GENERAL BACK: Yes CVA tenderness CVA tenderness: left Extremity: COMMON NORMALS: no clubbing, cyanosis or edema NARRATIVE EXTREMITY EXAM: Significant portion of his left hand has been removed. Neuro: COMMON NORMALS: no focal motor deficits SENSORIUM/ORIENTATION: Yes alert Psych: COMMON NORMALS: mental status grossly normal APPEARANCE: Yes grossly normal and Yes well kempt ATTITUDE: Yes calm and Yes engaged Skin: COMMON NORMALS: no rashes or lesions noted and no jaundice GENERAL SKIN EXAM: no rashes or lesions noted A&P Assessment and plan (1) Left ureteral calculus: 3 mm left distal ureteral stone with obstruction complicated by acute cystitis. No evidence of sepsis. Plan: KUB in the morning Likely surgical intervention if he has not passed the stone by tomorrow Will be available for emergency intervention if required Status: Acute (2) Hydronephrosis of left kidney: Mild left hydronephrosis from partially obstructing left distal ureteral stone Status: Acute (3) Acute cystitis without hematuria: Status: Acute Consult Attestations Medical Necessity Statement: Requires close observation for obstructing left distal ureteral stone. Small with good chance of passing blood complicated by acute cystitis. No evidence of sepsis. Patient looks stable tonight but not safe for discharge. 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
[2021-04-04] MEDS: carvedilol 6.25 mg Tablet PO (21:17)
[2021-04-04] MEDS: sodium chloride 0.9% 1,000 ML 150 ML IV (21:20)
[2021-04-04] MEDS: famotidine 20 mg/2 mL INJ IVP (21:22)
[2021-04-05] VITALS (18 sets, daily range): BP systolic 97–153; BP diastolic 55–88; PULSE 69–97; RESP 14–20; TEMP 36.3–37.3; O2SAT 93–99
--- NOTE | 2021-04-05 | SCC_ITS ---
Procedure Done: 1. Cystoscopy with left retrograde ureteropyelogram 2. Ureteroscopy, stone extraction, stent 27.5 seconds of fluoroscopic guidance, for a cumulative dose of 3.92 mGy, was provided to Dr. Gandhi by the radiology department. C-arm images of the abdomen were saved for the patient's permanent record. [facility]
[2021-04-05] MEDS: sodium chloride 0.9% 1,000 ML 150 ML IV ×2 (04:06→18:05)
[2021-04-05 06:04] LABS: Basophils # 0.1 10^3/uL (0.0-0.1); Basophils % 0.4 %; Eosinophils # 0.1 10^3/uL (0.0-0.8); Eosinophils % 0.3 %; Hemoglobin 13.7 g/dL (11.7-16.6); Lymphocytes # 1.8 10^3/uL (0.8-4.8); Lymphocytes % 9.2 %; Mean Corpuscular HGB Conc 32.6 g/dL (30.0-36.0); Mean Corpuscular Hemoglobin 30.6 pg (28.0-34.0); Mean Corpuscular Volume 93.8 fL (80-94); Mean Platelet Volume 11.2 fL (7.4-10.4); Monocytes # 1.3 10^3/uL (0.2-0.9); Monocytes % 6.6 %; Neutrophils # 16.52 10^3/uL (1.8-7.7); Nucleated Red Blood Cells % 0 %; Platelet Count 202 10^3/cmm (130-400); Red Blood Count 4.48 10^6/uL (4.1-5.3); Red Cell Distribution Width 12.9 % (12.1-15.1); White Blood Count 19.9 10^3/uL (4.0-10.0)
[2021-04-05 06:15] LABS: Anion Gap 10.4 (5-19); Blood Urea Nitrogen 19 mg/dL (6-20); Calcium 7.9 mg/dL (8.5-10.5); Carbon Dioxide 26 mmol/L (22-29); Chloride 106 mmol/L (98-107); Glomerular Filtration Rate 52.8 mL/min (90-130); Glucose 121 mg/dL (65-115); Osmolality Calculated 290 mOsm/kg (285-295); Potassium 4.4 mmol/L (3.5-5.1); Sodium 138 mmol/L (136-145)
--- NOTE | 2021-04-05 06:21 | XR_ITS ---
WS: [id number] KUB, 04/05/2021 Clinical Data: Follow up Left distal ureteral stone Comparison: CT abdomen and pelvis, 04/04/2021 Findings: No abnormal intraabdominal masses or calcifications are seen. There is no dilatated small bowel or ev idence of obstruction. There is contrast material in the left ureter and there is moderate dilatation of the left ureter joseph n to the left ureterovesical junction. There is probably a small calculus at this level. There is con trast in the bladder. XR/XR KUB [id number] Impression: Probable left UVJ calculus.
--- NOTE | 2021-04-05 07:32 | P.PN_ITS ---
Subjective Subjective: Interval history: UROLOGY follow-up Hospital day #2. Has been afebrile overnight. Vital signs of been stable. White count this morning is slightly increased. Describes pain is improved. Decreased nausea and vomiting. Has less irritative voiding symptoms. Has not passed the stone. Has been diligent about using a urinal. KUB this morning is pending. Because of his increased white count for least persistence of the elevation in the lack of passing a stone I recommended proceeding to surgical intervention this afternoon. We will tentatively plan for around 12 PM. I reviewed the procedure in detail. The plan will be to perform a cystoscopy, LEFT retrograde ureteroscopy laser and stent. Also reviewed that if his clinical and hemodynamic status is more tenuous that we would just place a stent. Reviewed benefits and risks as well as alternatives. Hopefully he can pass the stone before we reach that point but based on the infection and obstructive changes I think intervention makes more sense and if safe then to remove the stone at the same time. Informed consent was obtained Vitals/I&O/Wt Last Vital Signs Temp 97.4 F L 04/05/21 03:37 Pulse 93 04/05/21 03:37 Resp 18 04/05/21 03:37 BP 117/72 04/05/21 03:37 Pulse Ox 98 04/05/21 03:37 04/04/21 04/05/21 04/05/21 22:59 06:59 14:59 Intake Total 550 / 550 1000 / 1550 Output Total 200 / 200 Balance 350 / 350 1000 / 1350 Weight last 48 hrs Weight 150 lb Physical Exam Const: COMMON NORMALS: no acute distress, alert and well nourished GENERAL APPEARANCE: well kempt and well developed ORIENTATION/CONSCIOUSNESS: not confused HENMT: COMMON NORMALS: normocephalic and atraumatic HEAD & SCALP: normocephalic, atraumatic and other (Edentulous) Eye: COMMON NORMALS: conjunctivae normal and no scleral icterus CONJUNCTIVA: Yes conjunctivae normal Neck/C-Spine: COMMON NORMALS: full ROM GENERAL: Yes normal visual inspection Resp: COMMON NORMALS: normal respiratory effort EFFORT & INSPECTION: No labored and No Actively coughing GI: COMMON NORMALS: Soft to palpation PALPATION: Yes Soft to palpation and Yes Tenderness to palpation present (GI) : BLADDER/KIDNEY EXAM: Yes CVA tenderness Back/Pelvis: GENERAL BACK: Yes CVA tenderness CVA tenderness: left Extremity: COMMON NORMALS: no clubbing, cyanosis or edema NARRATIVE EXTREMITY EXAM: Significant portion of his left hand has been removed. Neuro: COMMON NORMALS: no focal motor deficits SENSORIUM/ORIENTATION: Yes alert Psych: COMMON NORMALS: mental status grossly normal APPEARANCE: Yes grossly normal and Yes well kempt ATTITUDE: Yes calm and Yes engaged Skin: COMMON NORMALS: no rashes or lesions noted and no jaundice GENERAL SKIN EXAM: no rashes or lesions noted Data : 04/05/21 04:35 04/05/21 04:35 A&P Assessment and plan (1) Left ureteral calculus: 3 mm left distal ureteral stone with obstruction complicated by acute cystitis. No evidence of sepsis. Plan: KUB pending. Plan for intervention around noon today to retrieve the stone if possible to do safely or just simply place a stent if there is a question about hemodynamic status etc. Informed consent obtained Status: Acute (2) Hydronephrosis of left kidney: Mild left hydronephrosis from partially obstructing left distal ureteral stone Status: Acute (3) Acute cystitis without hematuria: White count still elevated today Status: Acute Attestations Medical Necessity Statement*: See attending Coding Level of Care Code Acute Neonatal Nurse Practitioner for Jerrica Meyer Diagnoses Left ureteral calculus N20.1 Hydronephrosis of left kidney N13.30 Acute cystitis without hematuria N30.00
[2021-04-05] MEDS: famotidine 20 mg/2 mL INJ IVP ×2 (10:05→21:01)
[2021-04-05] MEDS: carvedilol 6.25 mg Tablet PO ×2 (10:05→21:02)
--- NOTE | 2021-04-05 11:24 | PC.CHAP ---
Pastoral Care Encounter/Spiritual Assessment Type of Contact [] Declined fire safety director visit [] Patient/Family/Request visit [] Outpatient visit [] Follow-up visit [] Physician referral [] Code/Alert [x] Routine visit [] Staff referral [] Actively dying [] Patient sleeping [] Family support [] [] Out of room [] Palliative care [] [x] Receiving care in room [] Pre-surgical visit [] Trauma [] Long length of stay [] ICU visit [] Other: Relational/Emotional Strength [x] Patient feels connected with others/family/visitors/staff [] Distress [] Loneliness/isolation [] Abandonment Spirituality of Patient [x] Person of Thao [] Attends Sabianist of their Thao [x] Believes in Prayer [] Reads Bible or Holiness materials [] There are Spiritual issues to be addressed Coil Cleaner Interventions [x] Prayer [x] Active listening [x] Non-anxious presence [x] Spiritual/emotional support [] Crisis/trauma care [x] Spiritual counseling [] Bereavement support [] Provided bereavement packet [] Provided Bible/devotional materials [] Provided toy/stuffed animal, coloring book to patient or family member [] Provided Communion [] Anointing/[place] [] Salvation [x] Completed spiritual assessment [] Other: Impact on Illness or Injury [] Angry [x] Fearful [] Anxious [] Often cries [] Exhaustion [x] Unable to work [] Unable to attend restorationism [] Unable to walk/stand [] Unable to read [] Unable to drive [] Unable to eat/drink [] Unable to sleep [] Unable to be with family [] Patient intubated [] Other: Summary in pain kindney Stones if he doesn't them lazer or surgery this afternoon, wants to go home to family, has a good attitude Time spent with patient 10 mins
--- NOTE | 2021-04-05 11:53 | P.OP_ITS ---
Operative Report Date of procedure: April 05, 2021 Pre-op Diagnosis: Left distal ureteral stone with acute cystitis Post-op diagnosis: same Procedure Done: 1. Cystoscopy with left retrograde ureteropyelogram 2. Ureteroscopy, stone extraction, stent Pathology: Stone fragments Surgeon: Hiram Anesthesia: General Estimated blood loss: Minimal Urine output: not measured Complications: None Findings: Stone in the expected position. Did not require fragmentation. Stent left indwelling at the completion of procedure due to balloon dilation trauma of a tightly narrowed distal ureteral stricture Condition: stable Disposition: PACU Brief History: Bob is a very pleasant 56-year-old white male who was diagnosed with a left distal ureteral obstructing stone with severe symptomatology yesterday. He had symptoms off and on for a week or more. Stone was located at the UVJ. Complicated by acute cystitis without evidence of sepsis. White count did not improve with antibiotic therapy. It was hoped that he would pass a stone with conservative management but did not. Taken to the operating room urgently today for intervention. Procedure: After urgent evaluation examination and obtaining of informed consent he was taken to the operating suite on 04/05/2021 where general anesthesia was administered without difficulty after appropriate timeout was performed, SCDs confirmed to be functioning, preoperative antibiotics administered, beta-dionte protocol confirmed. Prepped and draped in usual sterile fashion in dorsolithotomy position paying careful attention to avoiding pressure points. 21 Trinidadian cystoscope with 30 degree lens was introduced into the urethra meatus and advanced into the bladder without difficulty. Bladder was systematically examined. No stone was seen. Left ureteral orifice showed some edema. An 8 Trinidadian cone-tip catheter was intubated to the left ureteral orifice for a left retrograde ureteropyelogram which showed the stone at the very distal aspect of the ureter as a filling defect in the ureter proximal to that point showing dilation. There appeared to be a distinct narrowing just below the stone. Only a minimal amount of pressure was applied the contrast was not injected all the way into the kidney to avoid high pressure. Flexible tip guidewire was then advanced up the left ureter bypassing the stone curling in the upper pole calyx. Distal ureter was then dilated with a 15 Trinidadian 4 cm balloon and it required high pressure of 14 jovanny in order to completely dilate the narrowed area below the stone. Wire was secured to the drapes as a safety wire and a 7 Trinidadian offset semirigid ureteroscope was then advanced up the left ureter to the stone where it was felt to be small enough to be L to be removed with a grasping forcep. It was secured in a 3 Trinidadian grasping forceps and easily withdrawn through the ureter bladder and urethra and sent for pathologic evaluation. Final inspection showed no additional stones. The distal ureter showed slightly more than usual trauma from the balloon dilation consistent with dilation of a stricture. For that reason it was decided to leave a stent indwelling. The infection also increased concern. Cystoscope was then backloaded over the guidewire and a 7 Trinidadian by 28 cm double-pigtail stent without string was advanced over the guidewire through the cystoscope into appropriate position as confirmed via fluoroscopy and cystoscopy. The bladder was drained and the procedure was completed. Tolerated the procedure well without complications and was awakened in the operating room and returned to the care of room in stable condition. PLANS: 1. Observe overnight and with continued IV antibiotics 2. We will follow-up in the clinic in approximately 2 weeks for possible stent removal. He will need to be maintained on initially therapeutic and then suppressive antibiotics until the stent is removed.
--- NOTE | 2021-04-05 12:06 | ANES.PREANE2 ---
Pre-Anesthetic Assessment Pre-Anesthetic Assessment: Height/Weight: Height 1.73 m Weight 68.039 kg Temp Pulse Resp BP Pulse Ox 99.1 F 80 18 136/88 97 04/05/21 11:57 04/05/21 11:57 04/05/21 11:57 04/05/21 11:57 04/05/21 11:57 Preop Diagnosis: Left distal ureteral stone with acute cystitis Proposed Procedure: Operation Date: 04/05/21 12:15 Proposed Procedures p Cystoscopy(Not Applicable) - Valdemar Gandhi MD s Ureteral Stent Placement(Left) - Valdemar Gandhi MD s Ureteroscopy(Left) - Valdemar Gandhi MD s Laser Lithotripsy(Left) - Valdemar Gandhi MD Familial anesthetic complications: none Was Beta Shell taken within 24 hours: Yes Was Clonidine taken within 24 hours: N/A Last intake: > 8 hrs Social: Social History: Alcohol and Tobacco Exam: Pre-Anes Outpt Exam: alert, oriented x 3, clear to auscultation bilaterally and regular rate & rhythm Airway: MP: 4 Dentition: Other (none) CV/HEM: CV/HEM: HTN Comments: This patient is known to have chest pain off and on for last many years. Stress test was negative for ischemia Metabolic: Metabolic: DM Neuropsych: Neuropsych: Bipolar Meds/Allergies Current Medications: Current Medications Generic Name Dose Route Start Last Admin Trade Name Freq PRN Reason Stop Dose Admin Carvedilol 6.25 mg 04/04/21 21:00 04/05/21 10:05 Carvedilol 6.25 Mg Tablet PO 6.25 mg BID@ LOUIE Administration Dronabinol 5 mg 04/05/21 07:00 04/05/21 10:05 Dronabinol 2.5 M g Capsule PO Not Given BIDAC LOUIE Famotidine 20 mg 04/04/21 20:00 04/05/21 10:05 Famotidine 20 Mg /2 Ml Inj IVP 20 mg Q12H LOUIE Administration Sodium Chloride 1,000 mls @ 150 m ls/hr 04/04/21 16:48 04/05/21 04:06 Sodium Chloride 0.9% IV 150 mls/hr .Q6H40M LOUIE Administration Ketorolac Trometha mine 30 mg 04/04/21 19:45 04/04/21 22:12 Ketorolac 30 Mg/ Ml Inj IVP 04/09/21 19:44 30 mg Q6H PRN Administration MODERATE PAIN Additional Medication Information: I personally reviewed home medication list and medications received day of admission thus far. PFSH Anesthesia PFSH: Medical History Bilateral varicoceles Bipolar 1 disorder History of hypertension History of kidney stones Hx of chest pain Hx of migraine headaches OCD (obsessive compulsive disorder) Schizo affective schizophrenia Tobacco use Ventricular arrhythmia Surgical History 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, right hand Hx of shoulder surgery S/P left inguinal hernia repair (~2016) Laparoscopic Transabdominal preperitoneal (CASSIA) approach Family History Mother Myocardial infarction CAD (coronary artery disease) Diabetes Lung disease Stroke Father Myocardial infarction Stroke Father CAD (coronary artery disease) Grandfather Stroke Other FH: Cooke's chorea Denies family history of Clotting disorder Dementia Chronic kidney disease (CKD) Suicide Anesthesia complication Bleeding disorder Cancer Social History Smoking and tobacco status: current every day smoker cigarettes Alcohol intake: former Substance/Drug Use: current Substance/Drug use frequency: daily Substance/Drug use type: Marijuana Data Anesthesia CBC & Chem 7: 04/05/21 04:35 04/05/21 04:35 Other Labs: Laboratory Results - last 48 hr 04/04/21 04/04/21 04/04/21 11:09 11:09 12:50 WBC 19.8 H RBC 5.87 H Hgb 17.6 H Hct 53.5 H MCV 91.1 MCH 30.0 MCHC 32.9 RDW 12.5 Plt Count 312 MPV 11.3 H Neut % (Auto) 81.8 Lymph % (Auto) 10.1 [place] % (Auto) 6.1 Eos % (Auto) 0.7 Baso % (Auto) 0.7 Neut # (Auto) 16.26 H Lymph # (Auto) 2.0 [place] # (Auto) 1.2 H Eos # (Auto) 0.1 Baso # (Auto) 0.1 Nucleated RBC % (auto) 0 Nucleated RBCs # 0.0 Sodium 140 Potassium 4.6 Chloride 102 Carbon Dioxide 27 Anion Gap 15.6 BUN 17 Creatinine 1.2 GFR Calculation 63.1 L Glucose 142 H Calculated Osmolality 294 Lactate Calcium 10.2 Total Bilirubin 0.6 AST 17 ALT 12 Alkaline Phosphatase 99 C-Reactive Protein 1.8 Total Protein 8.3 Albumin 5.1 Globulin 3.2 Amylase 62 Lipase 22 Urine Color Brown Urine Appearance Cloudy Urine pH 5 Ur Specific [place] 1.015 Urine Protein Trace Urine Glucose (UA) Norm Urine Ketones Negative Urine Blood 3+ H Urine Nitrate Positive H Urine Bilirubin Neg Urine Urobilinogen Norm Ur Leukocyte Esterase 2+ H Urine RBC 40-50 H Urine WBC 25-40 H Ur Squamous Epith Cells 0-4 H Amorphous Sediment Not Reportable Urine Bacteria 4+ H 04/04/21 04/05/21 04/05/21 14:20 04:35 04:35 WBC 19.9 H RBC 4.48 Hgb 13.7 Hct 42.0 MCV 93.8 MCH 30.6 MCHC 32.6 RDW 12.9 Plt Count 202 MPV 11.2 H Neut % (Auto) 83.0 Lymph % (Auto) 9.2 [place] % (Auto) 6.6 Eos % (Auto) 0.3 Baso % (Auto) 0.4 Neut # (Auto) 16.52 H Lymph # (Auto) 1.8 [place] # (Auto) 1.3 H Eos # (Auto) 0.1 Baso # (Auto) 0.1 Nucleated RBC % (auto) 0 Nucleated RBCs # 0.0 Sodium 138 Potassium 4.4 Chloride 106 Carbon Dioxide 26 Anion Gap 10.4 BUN 19 Creatinine 1.4 H GFR Calculation 52.8 L Glucose 121 H Calculated Osmolality 290 Lactate 0.9 Calcium 7.9 L Total Bilirubin AST ALT Alkaline Phosphatase C-Reactive Protein Total Protein Albumin Globulin Amylase Lipase Urine Color Urine Appearance Urine pH Ur Specific [place] Urine Protein Urine Glucose (UA) Urine Ketones Urine Blood Urine Nitrate Urine Bilirubin Urine Urobilinogen Ur Leukocyte Esterase Urine RBC Urine WBC Ur Squamous Epith Cells Amorphous Sediment Urine Bacteria Micro: Microbiology 04/04/21 12:50 Urine Culture - Preliminary Urine,Clean Catch Gram Negative Rods Cardiac Studies: No Data to Display
[2021-04-05] MEDS: sodium chloride 0.9% 1,000 ML 30 ML IV (12:09)
[2021-04-05] MEDS: cefTRIAXone 1,000 MG in sodium chloride 0.9% (plus) 50 ML 100 MG IV (12:20)
--- NOTE | 2021-04-05 14:58 | PM.PN ---
Subjective Subjective: Interval history: Patient has been seen both prior to surgery today and after. He has quite a labile affect at times. He has required encouragement to stay in the hospital. He is feeling some better since having stone removal and stent placed. He wants to leave. Hematuria noted. Increased creatinine, white blood count and continues to require IV pain medication. After much discussion and review of importance of medical care to prevent him from having to be in the hospital longer down the road, he did eventually agree to stay. I talked with him at least twice today in this regard Vitals/I&O/Wt Last Vital Signs Temp 97.9 F 04/05/21 13:30 Pulse 75 04/05/21 13:30 Resp 17 04/05/21 13:30 BP 114/71 04/05/21 13:30 Pulse Ox 95 04/05/21 13:30 04/04/21 04/05/21 04/05/21 22:59 06:59 14:59 Intake Total 550 / 550 1000 / 1550 1850 / 1850 Output Total 200 / 200 500 / 500 Balance 350 / 350 1000 / 1350 1350 / 1350 Weight last 48 hrs Weight 68.039 kg Physical Exam Narrative: EXAM NARRATIVE: Constitutional: Restless, agitated Respiratory: Clear to auscultation bilaterally Cardiovascular: Regular rate and rhythm Abdomen: Soft, remains tender in left side of quadrants but flank is no longer tender, positive bowel sounds, no rebound or guarding Extremities: No pitting edema, loss of digits to the right hand Skin: Dry, no rashes Neuro: Speech is clear, moves all extremities, gait normal, keeps his tongue protruded Data : 04/05/21 04:35 04/05/21 04:35 Micro: Microbiology 04/04/21 12:50 Urine Culture - Preliminary Urine,Clean Catch Gram Negative Rods A&P Assessment and plan (1) S/P cystoscopy with ureteral stent placement: POD 0 Status: Acute (2) Acute abdominal pain: Status: Acute (3) Left ureteral calculus: Status: Acute (4) Acute cystitis without hematuria: Gram-negative rods Status: Acute (5) Hydronephrosis of left kidney: Status: Acute (6) Ventricular arrhythmia: history, on chronic beta dionte Status: Chronic (7) Benign essential HTN: on chronic lisinopril/HCTZ Status: Chronic (8) Marijuana abuse: Status: Chronic (9) Nicotine dependence, cigarettes, uncomplicated: Status: Chronic Additional A&P Information Mild hyperglycemia without a known history of diabetes Continue IV fluids Continue antibiotics Pain control Nicotine patch and Ativan for anxiety Follow-up pending cultures Diet has been ordered Continue home carkenyattailol Smokes marijuana daily Check A1c in am Supportive care otherwise I am not sure how long he will remain in the hospital for treatment but ideally would like to see improvement in his white count and creatinine as well as have identification of gram-negative rods in urine. Should he leave prior to us having that information would encourage hydration, probably prescribe Levaquin given higher likelihood of him taking it as prescribed until follow-up with Dr. Gandhi. Consultants: Dr Gandhi Pending/ordered tests/procedures to follow: Urine cultures Lines/tubes: peripheral IVs DVT prophylaxis: SCDs, no pharmacological treatment secondary to hematuria Plans, findings and concerns discussed with patient and and they were given an opportunity to ask questions. Anticipated Disposition: Home Code Status: Full Code Attestations Medical Necessity Statement*: Requires ongoing inpatient stay for continued management as described above. Urine cultures are growing gram-negative rods. Creatinine is up and he has hematuria post procedure. Plans are as indicated. Time Spent in Patient Care: Greater than 35 minutes (>than 50% of time spent in counselling and/or direct pt care on unit). Coding Level of Care Code Acute Despatching And Receiving Clerk for Chg Fwd Diagnoses S/P cystoscopy with ureteral stent placement Z96.0 Acute abdominal pain R10.9 Left ureteral calculus N20.1 Acute cystitis without hematuria N30.00 Hydronephrosis of left kidney N13.30 Ventricular arrhythmia I49.9 Benign essential HTN I10 Marijuana abuse F12.10 Nicotine dependence, cigarettes, uncomplicated F17.210
[2021-04-05] MEDS: HYDROmorphone 1 mg/mL INJ 1 mL IVP (16:41)
[2021-04-05] MEDS: dronabinol 2.5 mg Capsule 5 MG PO (16:41)
--- NOTE | 2021-04-05 17:57 | ANE.PACU2 ---
Inpatient post-anesthesia follow up: Airway intact: Yes Vital signs: Temperature 97.6 F Pulse Rate [Left] 84 Pulse Rate 85 Respiratory Rate 18 Blood Pressure [Ri ght Arm] 169/110 Blood Pressure 131/69 Pulse Oximetry 96 Oxygen Delivery Me thod [ Room Air Current Rate & Del jeanne] Oxygen Delivery Me thod Room Air Oxygen Flow Rate [ Current Rate 2 & Delivery] Fraction of Inspir ed Oxygen Hydration adequate: Yes Nausea and vomiting: No Pain level: 2 Mental status: Baseline
[2021-04-06] MEDS: sodium chloride 0.9% 1,000 ML 150 ML IV ×2 (00:33→06:27)
[2021-04-06 03:18] VITALS: BP 149/83; PULSE 78; RESP 20; TEMP 37.1; O2SAT 99
[2021-04-06] MEDS: ketorolac 30 mg/mL INJ IVP (04:00)
[2021-04-06 04:53] LABS: Basophils % 0.2 %; Eosinophils % 0.1 %; Hematocrit 39.4 % (42.0-52.0); Lymphocytes % 13.1 %; Mean Corpuscular Hemoglobin 30.6 pg (28.0-34.0); Mean Corpuscular Volume 92.7 fL (80-94); Mean Platelet Volume 11.5 fL (7.4-10.4); Monocytes # 0.8 10^3/uL (0.2-0.9); Monocytes % 5.5 %; Neutrophils # 12.09 10^3/uL (1.8-7.7); Neutrophils % 80.6 %; Nucleated Red Blood Cells % 0 %; Platelet Count 198 10^3/cmm (130-400); Red Blood Count 4.25 10^6/uL (4.1-5.3); Red Cell Distribution Width 12.6 % (12.1-15.1)
[2021-04-06 05:13] LABS: Anion Gap 10.2 (5-19); Blood Urea Nitrogen 19 mg/dL (6-20); Carbon Dioxide 24 mmol/L (22-29); Chloride 108 mmol/L (98-107); Glomerular Filtration Rate 87.9 mL/min (90-130); Glucose 104 mg/dL (65-115); Osmolality Calculated 289 mOsm/kg (285-295); Potassium 4.2 mmol/L (3.5-5.1); Sodium 138 mmol/L (136-145)
--- NOTE | 2021-04-06 05:51 | PC.NURSE ---
Shift Summary Patient has rested well during this shift with only complaining of pain one time, toradol given. Has had good urine out put, which has been the color of tea.
[2021-04-06 06:26] LABS: Estmated Average Glucose 100; Hemoglobin A1C 5.1 % (4.0-6.0)
[2021-04-06] MEDS: dronabinol 2.5 mg Capsule 5 MG PO (06:26)
--- NOTE | 2021-04-06 07:20 | P.PN_ITS ---
Subjective Subjective: Interval history: Urology follow-up: Postoperative day #1, ureteroscopic stone extraction retrograde pyelogram and stent placement. Overall doing well. Decreased pain and discomfort. Voiding well. Urine is slightly bloody as expected. Seems to be tolerating the stent well. No fever or chills. White count is still elevated but has decreased from 19+ down to 15. No signs of septic complications. From a urologic perspective I think he can be discharged whenever it is safe from an infectious concern. He will need to be on antibiotics at discharge and continue at least a suppressive dose until the stent is removed after full course treatment for the UTI. I will plan on seeing him back in about 2 weeks for reevaluation but I am hoping to leave the stent in for least 3 weeks for healing of the distal ureteral stricture which required high-pressure dilation. He has been provided with instructions for follow-up, expectations for stent symptoms, and long-term strategies for stone risk reduction will be discussed in the clinic. Vitals/I&O/Wt Last Vital Signs Temp 98.8 F 04/06/21 03:18 Pulse 78 04/06/21 03:18 Resp 20 H 04/06/21 03:18 BP 149/83 04/06/21 03:18 Pulse Ox 99 04/06/21 03:18 04/05/21 04/06/21 04/06/21 22:59 06:59 14:59 Intake Total 1855 / 3705 Output Total 150 / 650 375 / 1025 Balance -150 / 1200 1480 / 2680 Weight last 48 hrs Weight 150 lb Physical Exam Const: COMMON NORMALS: no acute distress, alert and well nourished GENERAL APPEARANCE: well kempt and well developed ORIENTATION/CONSCIOUSNESS: not confused HENMT: COMMON NORMALS: normocephalic and atraumatic HEAD & SCALP: normocephalic and atraumatic Neck/C-Spine: COMMON NORMALS: full ROM GENERAL: Yes normal visual inspection Resp: COMMON NORMALS: normal respiratory effort EFFORT & INSPECTION: No labored and No Actively coughing Neuro: COMMON NORMALS: no focal motor deficits SENSORIUM/ORIENTATION: Yes alert Psych: COMMON NORMALS: mental status grossly normal APPEARANCE: Yes grossly normal and Yes well kempt ATTITUDE: Yes calm and Yes engaged Skin: COMMON NORMALS: no rashes or lesions noted and no jaundice GENERAL SKIN EXAM: no rashes or lesions noted Data : 04/06/21 04:24 04/06/21 04:24 Micro: Microbiology 04/04/21 12:50 Urine Culture - Preliminary Urine,Clean Catch Gram Negative Rods A&P Assessment and plan (1) Left ureteral calculus: Extracted on 04/05/2021. Based on the size of the stone it should have passed spontaneously but he had a distal ureteral stricture/narrowing that required high-pressure dilation to allow scope passage to the stone. Stented for appropriate healing. At least 2 to 3 weeks required for stent Status: Resolved (2) Ureteral stricture, left: Discovered at endoscopy for left distal ureteral stone with obstruction complicated by UTI March 2021. Dilated. Stent left indwelling. Status: Acute (3) Hydronephrosis of left kidney: Resolved. Secondary to left distal ureteral stone. Status: Resolved (4) Acute cystitis without hematuria: No progression to septic complications. Will require antibiotics until stent is removed. Status: Acute (5) S/P cystoscopy with ureteral stent placement: Status: Acute Attestations Medical Necessity Statement*: See attending Coding Level of Care Code Acute Slitter And Rewinder Machine Operator for Chg Fwd Diagnoses Left ureteral calculus N20.1 Ureteral stricture, left N13.5 Hydronephrosis of left kidney N13.30 Acute cystitis without hematuria N30.00 S/P cystoscopy with ureteral stent placement Z96.0
[2021-04-06 08:00] VITALS: BP 133/81; PULSE 80; RESP 18; TEMP 36.4; O2SAT 96
[2021-04-06] MEDS: famotidine 20 mg/2 mL INJ IVP (08:15)
[2021-04-06] MEDS: carvedilol 6.25 mg Tablet PO (08:15)
--- NOTE | 2021-04-06 10:40 | PM.DCS ---
Discharge Providers Date of Admission: 04/04/21 16:49 Date of Discharge: April 06, 2021 Attending Provider at Admission: Jocelyn Casiano MD Attending Provider at Discharge: Jocelyn Casiano MD Consults: Dr. Gandhi with urology Primary Care Provider: Cortney Matthew Diagnoses at Discharge Discharge Diagnosis (1) Acute cystitis without hematuria: Status: Acute (2) Left ureteral calculus: Status: Resolved (3) Ureteral stricture, left: Status: Acute Permanent problem details: Discovered at endoscopy for left distal ureteral stone with obstruction complicated by UTI March 2021. (4) Hydronephrosis of left kidney: Status: Resolved (5) S/P cystoscopy with ureteral stent placement: Status: Acute Permanent problem details: with stone extraction and dilatation of ureteral stricture, Dr Gandhi (6) Benign essential HTN: Status: Chronic Reason for Visit Reason for Visit: ABD PAIN, N/V, L SIDE TENDERNESS Hospital Course Hospital Course Mr. Quinonez presented with abdominal pain and GI symptoms. He was ultimately found to have left ureteral calculus with evidence of acute cystitis. Dr. Gandhi was consulted from urology. Patient underwent cystoscopy with left ureteral stent placement on April 05. At that time he was found to have a ureteral stricture that prevented the stone from passing. Stone was sent for identification with results pending at the time of discharge. Urine culture grew out E. coli that was resistant to ampicillin, gentamicin and intermediate to tobramycin but otherwise sensitive. He is being discharged on Cipro. He needs to stay on antibiotics until follow-up with Dr. Gandhi on April 20. I have added lactobacillus to his regimen for this reason. He had previously been on lisinopril/hydrochlorothiazide. It was held while he was here. Blood pressures are normal not taking this medication and with minimal pain medications. I have currently held lisinopril/hydrochlorothiazide for this reason. He remains on carvedilol. He has necessitated intermittent narcotic pain medication including a dose last evening. I will give him a few pain pills in the event needed. He can continue NSAIDs which he was taking before. It is anticipated that he will continue to have decreasing amounts of hematuria. Dr. Gandhi educated him on post stent placement course. I also reviewed with him the importance of following up with Dr. Gandhi including that if he did not follow-up with Dr. Gandhi he would get a potentially more significant infection that would require him to be hospitalized much longer. He does not do well being hospitalized where he cannot smoke either cigarettes or marijuana. It took patient's and reassurance to keep him here long enough for us to help him. On the day of discharge he was calm. Significantly decreased left abdominal pain. Urine is tea colored. He denies physical difficulty urinating. White count remains elevated but has trended downward and with identification of cultures I think he is safe for discharge. He expressed understanding of the importance for follow-up and following instructions. He was not acutely ill-appearing, he was not as agitated as he had been previously, lungs were clear and he had a regular rhythm. Gait was normal. Discharge Data Data Completed and Pending: Completed Studies During Hospitalization Category Date Time Status CT abdomen pelvis wo/w [id number] Urgent Cat Scan 04/04/21 11:30 Completed XR KUB [id number] Rout ine Exams 04/05/21 06:21 Completed Pending at discharge Category Date Time Status C-arm FL for Urol ogy Routine Exams 04/05/21 11:55 Taken Stone Analysis Ro utine Lab 04/05/21 12:53 Ordered Pathology: Surgic al [PTH] Routine Pth 04/05/21 12:53 Received Laboratory Results WBC 15.0 10^3/uL (4.0 -10.0) H 04/06/21 04:24 RBC 4.25 10^6/uL (4.1 -5.3) 04/06/21 04:24 Hgb 13.0 g/dL (11.7-1 6.6) 04/06/21 04:24 Hct 39.4 % (42.0-52.0 ) L 04/06/21 04:24 MCV 92.7 fL (80-94) 04/06/21 04:24 MCH 30.6 pg (28.0-34. 0) 04/06/21 04:24 MCHC 33.0 g/dL (30.0-3 6.0) 04/06/21 04:24 RDW 12.6 % (12.1-15.1 ) 04/06/21 04:24 Plt Count 198 10^3/cmm (130 -400) 04/06/21 04:24 MPV 11.5 fL (7.4-10.4 ) H 04/06/21 04:24 Neut % (Auto) 80.6 % 04/06/21 04:24 Lymph % (Auto) 13.1 % 04/06/21 04:24 [place] % (Auto) 5.5 % 04/06/21 04:24 Eos % (Auto) 0.1 % 04/06/21 04:24 Baso % (Auto) 0.2 % 04/06/21 04:24 Neut # (Auto) 12.09 10^3/uL (1. 8-7.7) H 04/06/21 04:24 Lymph # (Auto) 2.0 10^3/uL (0.8- 4.8) 04/06/21 04:24 [place] # (Auto) 0.8 10^3/uL (0.2- 0.9) 04/06/21 04:24 Eos # (Auto) 0.0 10^3/uL (0.0- 0.8) 04/06/21 04:24 Baso # (Auto) 0.0 10^3/uL (0.0- 0.1) 04/06/21 04:24 Nucleated RBC % (a uto) 0 % 04/06/21 04:24 Nucleated RBCs # 0.0 /100WBC 04/06/21 04:24 Sodium 138 mmol/L (136-1 45) 04/06/21 04:24 Potassium 4.2 mmol/L (3.5-5 .1) 04/06/21 04:24 Chloride 108 mmol/L (98-10 7) H 04/06/21 04:24 Carbon Dioxide 24 mmol/L (22-29) 04/06/21 04:24 Anion Gap 10.2 (5-19) 04/06/21 04:24 BUN 19 mg/dL (6-20) 04/06/21 04:24 Creatinine 0.9 mg/dL (0.7-1. 2) 04/06/21 04:24 GFR Calculation 87.9 mL/min (90-1 30) L 04/06/21 04:24 Glucose 104 mg/dL (65-115 ) 04/06/21 04:24 Estimat Average Gl ucose 100 04/06/21 04:24 Hemoglobin A1c 5.1 % (4.0-6.0) 04/06/21 04:24 Calculated Osmolal ity 289 mOsm/kg (285- 295) 04/06/21 04:24 Lactate 0.9 mmol/L (0.5-2 .2) 04/04/21 14:20 Calcium 8.0 mg/dL (8.5-10 .5) L 04/06/21 04:24 Total Bilirubin 0.6 mg/dL (0.15-1 .2) 04/04/21 11:09 AST 17 U/L (0-40) 04/04/21 11:09 ALT 12 U/L (0-41) 04/04/21 11:09 Alkaline Phosphata se 99 IU/L (40-130) 04/04/21 11:09 C-Reactive Protein 1.8 mg/L (0.0-4.9 ) 04/04/21 11:09 Total Protein 8.3 g/dL (6.6-8.7 ) 04/04/21 11:09 Albumin 5.1 g/dL (3.5-5.2 ) 04/04/21 11:09 Globulin 3.2 g/dL (1.3-4.6 ) 04/04/21 11:09 Amylase 62 U/L (28-100) 04/04/21 11:09 Lipase 22 U/L (13-60) 04/04/21 11:09 Urine Color Brown (Yellow) 04/04/21 12:50 Urine Appearance Cloudy (CLEAR) 04/04/21 12:50 Urine pH 5 (5-7) 04/04/21 12:50 Ur Specific Gravit y 1.015 (1.005-1.0 30) 04/04/21 12:50 Urine Protein Trace (Negative) 04/04/21 12:50 Urine Glucose (UA) Norm (Normal) 04/04/21 12:50 Urine Ketones Negative (Negati ve) 04/04/21 12:50 Urine Blood 3+ (Negative) H 04/04/21 12:50 Urine Nitrate Positive (Negati ve) H 04/04/21 12:50 Urine Bilirubin Neg (Negative) 04/04/21 12:50 Urine Urobilinogen Norm mg/dL (Negat mike) 04/04/21 12:50 Ur Leukocyte Cande ase 2+ (Negative) H 04/04/21 12:50 Urine RBC 40-50 /hpf (0-2) H 04/04/21 12:50 Urine WBC 25-40 /hpf (0-5) H 04/04/21 12:50 Ur Squamous Epith Cells 0-4 /hpf (0-5) H 04/04/21 12:50 Amorphous Sediment Not Reportable 04/04/21 12:50 Urine Bacteria 4+ /hpf (NONE) H 04/04/21 12:50 Impressions Abdomen/Pelvis CT 04/04/21 11:30 IMPRESSION: 1. Mild LEFT hydroureteronephrosis secondary to a 3 mm distal ureteral calcification. Delayed excretion from the LEFT kidney. 2. Mild fecal retention. 3. Visualized appendix is normal. KUB X-Ray 04/05/21 06:21 Impression: Probable left UVJ calculus. Vitals: Last Vital Signs Temp 97.5 F L 04/06/21 08:00 Pulse 80 04/06/21 08:00 Resp 18 04/06/21 08:00 BP 133/81 04/06/21 08:00 Pulse Ox 96 04/06/21 08:00 Discharge Plan Discharge Patient Disposition: Home Condition: Stable Prescriptions: New Cipro 500 mg tablet 500 mg PO BID Qty: 30 RF: 0 Lactobacillus acidophilus 10 billion cell capsule 10,000 mmu cells PO BID 42 Days Qty: 84 RF: 0 hydrocodone-acetaminophen 5-325 mg tablet 1 tab PO Q6H PRN (Reason: severe pain (scale score 7-10)) Qty: 10 RF: 0 Continued aspirin [Adult Aspirin Regimen] 81 mg tablet,delayed release (DR/EC) 81 mg PO QAM RF: 0 nitroglycerin [Nitrostat] 0.4 mg tablet, sublingual 0.4 mg sublingual Q5M PRN (Reason: Chest Pain) RF: 0 carvedilol 6.25 mg tablet 6.25 mg PO BID 30 Days Qty: 60 RF: 5 ibuprofen 200 mg Tablet 800 mg PO PRN RF: 0 Held lisinopril-hydrochlorothiazide 10-12.5 mg tablet 1 tab PO DAILY RF: 0 Hold Instructions: Resume on 04/20/21. hold until follow up with PCP or Dr Gandhi and you are instructed to resume Discharge Orders: Discharge Order (Routine); Ordered 04/06/21 Ordered By: Valdemar Gandhi Other Ambulatory Orders: Basic Metabolic Panel (Routine) Timeframe: 1 Week Facility: [facility] - Location: Lab - Main Lab Ordered By: Jocelyn Casiano Complete Blood Count w/Auto (Routine) Timeframe: 1 Week Location: Determined by Patient Ordered By: Jocelyn Casiano Referrals: Cortney Matthew FNP [Primary Care Provider] - 04/09/21 1:30 pm () Valdemar Gandhi MD [Physician] - 04/20/21 12:00 pm (Possible cystoscopy with stent removal.) Discharge Diet: Usual diet Discharge Activity: Increase activity as tolerated Patient Instructions: Ciprofloxacin (By mouth), Probiotic (By mouth), Hydrocodone (By mouth), Kidney Stones (DC), Cystoscopy (DC), Ureteral Stent Placement (DC), Opioid Safety Activity Restrictions/Additional Instructions: UROLOGY INSTRUCTIONS 1. Your procedure went very well. The stone was removed intact without laser requirement for fragmentation. 2. You did have a distinct narrowing in the kidney tube just below the stone which would explain why the stone did not spontaneously pass. This narrowing required high-pressure dilation to open it up and will require the stent that was left indwelling, to remain in place for least 2 to 3 weeks for healing. 3. The stent will create some symptoms. These include urgency, frequency, blood in the urine, and left flank pain with urination at times. These are normal and not to be concerning. They may though prevent your normal activity. There are no specific restrictions because of this though so you can do anything that she can tolerate. 4. It is critically important to follow-up so that the stent can be removed at an appropriate time. If you do not stent will become calcified and require major surgery for removal. 5. I will be out of town the week of the but back in the office on the . Please call my office at [phone] if you have any concerns or questions. My nurse practitioner ROSAS Delgadillo will be in the office every day next week and available if you have any concerns. 6. You will need to remain on antibiotics until the stent has been removed. Discharge Attestations Time Spent in Discharge Care*: greater than 30 min Specific Discharge Activities: educating patient, documenting/other paperwork and evaluating patient/reviewing data Quality Metrics Clinical Quality Measures During this hospital stay, did patient experience: None Coding Level of Care Code Acute Chg FW DC note Diagnoses Acute cystitis without hematuria N30.00 Left ureteral calculus N20.1 Ureteral stricture, left N13.5 Hydronephrosis of left kidney N13.30 S/P cystoscopy with ureteral stent placement Z96.0 Benign essential HTN I10
[2021-04-06 10:53] VITALS: BP 133/81; PULSE 80; RESP 18; TEMP 36.4; O2SAT 96
--- NOTE | 2021-04-09 12:14 | PC.RESP ---
Smoking Cessation information sent to patient.
[2021-04-12 22:39] LABS: Stone Source LEFT URETERAL STONE
== END 2021-04-06 11:33 | disposition home or self-care (01) | DRG 660 ==
LOC: ER 16:41 → MEDSURG 18:46
PROVIDERS: Urology; Admitting Provider Hospitalist; Emergency Provider Nurse Practitioner Family; PCP Nurse Practitioner Family; Visit Provider Hospitalist
PROC: 0TJB8ZZ Inspection of Bladder, Via Natural or Artificial Opening Endoscopic (ICD-10-PCS; CPT 52000; principal; 2021-04-05 12:15)
PROC: 0T778DZ Dilation of Left Ureter with Intraluminal Device, Via Natural or Artificial Opening Endoscopic (ICD-10-PCS; CPT 50605; 2021-04-05 12:15)
PROC: 0TJ98ZZ Inspection of Ureter, Via Natural or Artificial Opening Endoscopic (ICD-10-PCS; CPT 52351; 2021-04-05 12:15)
DX: N13.2 Hydronephrosis with renal and ureteral calculous obstruction (principal); N30.00 Acute cystitis without hematuria; Z16.39 Resistance to other specified antimicrobial drug; F31.9 Bipolar disorder, unspecified; I10 Essential (primary) hypertension; Z87.442 Personal history of urinary calculi; F42.9 Obsessive-compulsive disorder, unspecified; F20.9 Schizophrenia, unspecified; F17.210 Nicotine dependence, cigarettes, uncomplicated; Z89.021 Acquired absence of right finger(s); I49.9 Cardiac arrhythmia, unspecified; F12.10 Cannabis abuse, uncomplicated; B96.20 Unspecified Escherichia coli [E. coli] as the cause of diseases classified elsewhere; Z79.82 Long term (current) use of aspirin
CPT/HCPCS: 36415; 74018; 74170; 74178; 76000; 80048; 80053; 81001; 82150; 82365; 83036; 83605; 83690; 85025; 86140; 87077; 87086; 87186; 88300; 96365; 96375; 99285; C2625; J0330; J0696; J1100; J1170; J1885; J2250; J2270; J2405; J2704; J2710; J3010; J3490; J7030; J7040; Q0167; Q9967

== ENCOUNTER 2021-04-08 16:37 | Emergency (ER) | payer MEDICAID, SELFPAY ==
[2021-04-08 16:48] VITALS: BP 126/79; PULSE 77; RESP 20; TEMP 36.8; O2SAT 100; BMI 22.8
--- NOTE | 2021-04-08 16:58 | ED_ITS ---
HPI - Male Genitourinary General: Chief complaint: Urogenital-Male Stated complaint: STENT PLACED UNABLE TO URINATE Time Seen by Provider: 04/08/21 16:54 History of Present Illness: HPI Narrative: Patient complains of burning with urination says burning where the stent is. Says it just did not feel right. Said he has had decreased output. Is taking hydrocodone for pains having some diarrhea no real bowel movement for the last couple days Complaint: dysuria Onset (ago): hour(s) Duration: constant Severity: moderate Quality: aching and burning Relieving factors: none Context: other (Recently had a stent placed had stone removed) Associated symptoms: Reports dysuria and vomiting Review of Systems Const: Denies: fever(s), chills or body aches Eyes: Denies: change in vision or blurry vision ENMT: Denies: throat pain or nasal congestion Card: Denies: chest pain or dyspnea on exertion Resp: Denies: dyspnea, productive cough or non-productive cough GI: Reports: abdominal pain, vomiting and diarrhea : Reports: dysuria and oliguria Musc: Denies: extremity pain Skin/Breast: Denies: rash Neuro: Denies: headache(s) Psych: Denies: anxiety or depression Ganesh/Lymph: Denies: easy bruising PFSH ED PFSH: Medical History (Updated 04/08/21 @ 17:43 by ROSAS Redd) Bilateral varicoceles Bipolar 1 disorder History of hypertension History of kidney stones Hx of chest pain Hx of migraine headaches OCD (obsessive compulsive disorder) Schizo affective schizophrenia Tobacco use Ventricular arrhythmia Surgical History (Updated 04/06/21 @ 10:51 by Jocelyn Casiano MD) 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, right hand Hx of shoulder surgery S/P cystoscopy with ureteral stent placement (04/05/21) with stone extraction and dilatation of ureteral stricture, Dr Gandhi S/P left inguinal hernia repair (~2016) Laparoscopic Transabdominal preperitoneal (CASSIA) approach Family History Mother Myocardial infarction CAD (coronary artery disease) Diabetes Lung disease Stroke Father Myocardial infarction Stroke Father CAD (coronary artery disease) Grandfather Stroke Other FH: [place]'s chorea Denies family history of Clotting disorder Dementia Chronic kidney disease (CKD) Suicide Anesthesia complication Bleeding disorder Cancer Social History Smoking and tobacco status: current every day smoker cigarettes Alcohol intake: former Physical Exam Const: COMMON NORMALS: no acute distress, average body habitus and patient oriented x3 HENMT: COMMON NORMALS: normocephalic HEAD & SCALP: normal to inspection and normocephalic FACE & SINUS: normal facial exam Eye: COMMON NORMALS: conjunctivae normal GENERAL EYE: appearance normal, both eyes and all related structures CONJUNCTIVA: Yes conjunctivae normal Neck/C-Spine: COMMON NORMALS: no JVD Chest: COMMONS NORMALS: normal inspection of the chest Resp: COMMON NORMALS: normal respiratory effort and clear to auscultation bilaterally AUSCULTATION: clear to auscultation bilaterally Cardio: COMMON NORMALS: no JVD, regular rate and regular rhythm RATE: regular rate RHYTHM: regular rhythm GI: COMMON NORMALS: Normal to inspection, nondistended, normoactive bowel sounds present AUSCULTATION: Yes Hypoactive bowel sounds present PALPATION: Yes Tenderness to palpation present (GI) (Generalized) Extremity: COMMON NORMALS: normal to inspection and full ROM Neuro: COMMON NORMALS: patient oriented x3 Course Vital Signs: Vital signs: Vital Signs Temperature 98.3 F 04/08/21 16:48 Pulse Rate 81 04/08/21 17:59 Respiratory Rate 20 H 04/08/21 16:48 Blood Pressure 139/93 04/08/21 17:59 Pulse Oximetry 100 04/08/21 17:59 MDM - Male [facility] Narrative: Medical decision making narrative: Patient was informed about radiology results and labs. Patient was instructed to stop his hydrocodone for now. Take [id number] laxatives. Increase fiber in diet follow-up Dr. Gandhi as scheduled. Lab Data: Labs: Lab Results 04/08/21 04/08/21 04/08/21 Range/Units 17:24 17:28 17:28 WBC 9.2 (4.0-10.0) 10^3/ uL RBC 5.32 H (4.1-5.3) 10^6/u L Hgb 16.0 (11.7-16.6) g/dL Hct 47.5 (42.0-52.0) % MCV 89.3 (80-94) fL MCH 30.1 (28.0-34.0) pg MCHC 33.7 (30.0-36.0) g/dL RDW 12.3 (12.1-15.1) % Plt Count 232 (130-400) 10^3/c mm MPV 11.0 H (7.4-10.4) fL Neut % (Auto) 76.6 % Lymph % (Auto) 12.4 % [place] % (Auto) 9.3 % Eos % (Auto) 0.4 % Baso % (Auto) 0.4 % Neut # (Auto) 7.07 (1.8-7.7) 10^3/u L Lymph # (Auto) 1.1 (0.8-4.8) 10^3/u L [place] # (Auto) 0.9 (0.2-0.9) 10^3/u L Eos # (Auto) 0.0 (0.0-0.8) 10^3/u L Baso # (Auto) 0.0 (0.0-0.1) 10^3/u L Nucleated RBC % (a uto) 0 % Nucleated RBCs # 0.0 /100WBC Sodium 136 (136-145) mmol/L Potassium 3.5 (3.5-5.1) mmol/L Chloride 97 L (98-107) mmol/L Carbon Dioxide 29 (22-29) mmol/L Anion Gap 13.5 (5-19) BUN 15 (6-20) mg/dL Creatinine 1.0 (0.7-1.2) mg/dL GFR Calculation 77.9 L (90-130) mL/min Glucose 110 (65-115) mg/dL Calculated Osmolal ity 283 L (285-295) mOsm/k g Calcium 8.9 (8.5-10.5) mg/dL Urine Color Brown (Yellow) Urine Appearance Cloudy (CLEAR) Urine pH 6.5 (5-7) Ur Specific Gravit y 1.015 (1.005-1.030) Urine Protein 2+ H (Negative) Urine Glucose (UA) Norm (Normal) Urine Ketones Negative (Negative) Urine Blood 3+ H (Negative) Urine Nitrate Negative (Negative) Urine Bilirubin Neg (Negative) Urine Urobilinogen Norm (Negative) mg/dL Ur Leukocyte Cande ase 1+ H (Negative) Urine RBC Too numerous to c nt H (0-2) /hpf Urine WBC 10-15 H (0-5) /hpf Ur Squamous Epith Cells None (0-5) /hpf Amorphous Sediment Not Reportable Urine Bacteria 1+ H (NONE) /hpf Discharge Plan Discharge Patient Disposition: Home Clinical Impression: Constipation Qualifiers: Constipation type: drug induced constipation Qualified Code(s): K59.03 - Drug induced constipation Condition: Stable Prescriptions: No Action aspirin [Adult Aspirin Regimen] 81 mg tablet,delayed release (DR/EC) 81 mg PO DAILY RF: 0 nitroglycerin [Nitrostat] 0.4 mg tablet, sublingual 0.4 mg sublingual Q5M PRN (Reason: Chest Pain) RF: 0 carvedilol 6.25 mg tablet 6.25 mg PO BID 30 Days Qty: 60 RF: 5 ibuprofen 200 mg Tablet 800 mg PO PRN RF: 0 lisinopril-hydrochlorothiazide 10-12.5 mg tablet 1 tab PO DAILY RF: 0 Hold Instructions: Resume on 04/20/21. hold until follow up with PCP or Dr Gandhi and you are instructed to resume ciprofloxacin HCl [Cipro] 500 mg tablet 500 mg PO BID Qty: 30 RF: 0 Lactobacillus acidophilus 10 billion cell capsule 10,000 mmu cells PO BID 42 Days Qty: 84 RF: 0 hydrocodone-acetaminophen 5-325 mg tablet 1 tab PO Q6H PRN (Reason: severe pain (scale score 7-10)) Qty: 10 RF: 0 Discharge Orders: Discharge ED (Routine); Ordered 04/08/21 Ordered By: Chuy Gross Referrals: Cortney Matthew, LEGAL TRANSCRIPTIONIST [Primary Care Provider] - Discharge Diet: As Directed Discharge Activity: Increase activity as tolerated Patient Instructions: Constipation (ED), High Fiber Diet (ED), Opioid Safety Activity Restrictions/Additional Instructions: Stop taking hydrocodone. Take Tylenol or ibuprofen for discomfort. Drink lots of fluids. Increase fiber in your diet. Can use magnesium citrate, fleets enema, stool softener, laxative and fiber tablets to help with movement of bowels. Follow-up your primary care provider if no significant provement. Coding Level of Care Code ED [employer] Architect for Chg Fwd Exam Comprehensive
--- NOTE | 2021-04-08 17:00 | XRR_ITS ---
PROCEDURE INFORMATION: Exam: XR Abdomen Exam date and time: 04/08/2021 5:04 PM Age: 56 years old Clinical indication: Abdominal pain; Flank; Patient HX: Recent left ureteral stent placement; Additional info: Abd pain TECHNIQUE: Imaging protocol: XR of the abdomen. Views: Frontal supine view of the abdomen. 1 View. Total images: 1 COMPARISON: CR XR KUB [id number] 04/05/2021 7:49 AM FINDINGS: Tubes, catheters and devices: Left double-J ureteral stent in place. Gastrointestinal tract: Nonobstructive bowel pattern. No visible adynamic or reactive ileus. Heavy fecal residue suggest constipation. Organs: No radiographically visible renal or ureterolithiasis. Vasculature: Phleboliths in the true pelvis. Bones/joints: Mild scoliotic curvature. XR/XR KUB portable [id number] IMPRESSION: 1. Left double-J ureteral stent appears in satisfactory position. 2. Constipation.
[2021-04-08 17:30] VITALS: O2SAT 94
[2021-04-08 17:43] LABS: Basophils % 0.4 %; Eosinophils % 0.4 %; Hematocrit 47.5 % (42.0-52.0); Lymphocytes # 1.1 10^3/uL (0.8-4.8); Lymphocytes % 12.4 %; Mean Corpuscular HGB Conc 33.7 g/dL (30.0-36.0); Mean Corpuscular Hemoglobin 30.1 pg (28.0-34.0); Mean Corpuscular Volume 89.3 fL (80-94); Monocytes # 0.9 10^3/uL (0.2-0.9); Monocytes % 9.3 %; Neutrophils # 7.07 10^3/uL (1.8-7.7); Neutrophils % 76.6 %; Nucleated Red Blood Cells % 0 %; Platelet Count 232 10^3/cmm (130-400); Red Blood Count 5.32 10^6/uL (4.1-5.3); Red Cell Distribution Width 12.3 % (12.1-15.1); White Blood Count 9.2 10^3/uL (4.0-10.0)
[2021-04-08 17:54] LABS: Add Urine Microscopic? YES; Bilirubin Urine Neg (Negative); Blood Urine 3+ (Negative); Glucose Urine UA Norm (Normal); Ketones Urine Negative (Negative); Leukocyte Esterase Urine 1+ (Negative); Nitrate Urine Negative (Negative); Protein Urine 2+ (Negative); RBC Urine TOO NUMEROUS TO CNT /hpf (0-2); Specific Gravity, Urine 1.015 (1.005-1.030); Urine Appearance Cloudy (CLEAR); Urine Color Brown (Yellow); Urobilinogen Urine Norm (Negative); pH Urine 6.5 (5-7)
[2021-04-08 17:55] LABS: Add Urine Culture? Yes; Bacteria Urine 1+ /hpf
[2021-04-08] MEDS: sodium chloride 0.9% 1,000 ML 999 ML IV (17:58)
[2021-04-08 17:59] VITALS: BP 139/93; PULSE 81; O2SAT 100
[2021-04-08 17:59] LABS: Anion Gap 13.5 (5-19); Blood Urea Nitrogen 15 mg/dL (6-20); Calcium 8.9 mg/dL (8.5-10.5); Carbon Dioxide 29 mmol/L (22-29); Chloride 97 mmol/L (98-107); Glomerular Filtration Rate 77.9 mL/min (90-130); Glucose 110 mg/dL (65-115); Osmolality Calculated 283 mOsm/kg (285-295); Potassium 3.5 mmol/L (3.5-5.1); Sodium 136 mmol/L (136-145)
--- NOTE | 2021-04-08 18:32 | PC.NURSE ---
pt in room screaming and cursing at staff to remove IV or he will take it out himself. Pt was not discharged. Pt did not sign AMA forms. Pt left at 1825
== END 2021-04-08 18:25 | disposition home or self-care (01) ==
PROVIDERS: Emergency Provider Nurse Practitioner Family; PCP Nurse Practitioner Family
DX: K59.03 Drug induced constipation (principal); Z79.82 Long term (current) use of aspirin; I10 Essential (primary) hypertension; F17.210 Nicotine dependence, cigarettes, uncomplicated
CPT/HCPCS: 74018; 80048; 81001; 85025; 87086; 96360; 99283; J7030

== ENCOUNTER → 2021-05-02 08:15 | Outpatient (BNVA) | payer MEDICAID, SELFPAY | PROVIDERS: PCP Nurse Practitioner Family; Visit Provider Urology | DX: N30.00 Acute cystitis without hematuria (principal); N13.5 Crossing vessel and stricture of ureter without hydronephrosis; Z96.0 Presence of urogenital implants | CPT/HCPCS: 81003 ==

== ENCOUNTER 2021-10-04 10:35 | Outpatient (CLI) | payer MEDICAID, SELFPAY ==
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
== END 2021-10-04 10:36 | disposition home or self-care (01) ==
PROVIDERS: PCP Nurse Practitioner Family; Visit Provider Family Medicine
DX: F07.81 Postconcussional syndrome (principal); S09.8XXA Other specified injuries of head, initial encounter; X58.XXXA Exposure to other specified factors, initial encounter
CPT/HCPCS: 70450

== ENCOUNTER 2022-01-22 16:25 | Outpatient (CLI) | payer MEDICAID, SELFPAY ==
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
== END 2022-01-22 16:26 | disposition home or self-care (01) ==
PROVIDERS: PCP Nurse Practitioner Family; Visit Provider Family Medicine
DX: M25.511 Pain in right shoulder (principal); M25.532 Pain in left wrist
CPT/HCPCS: 73000; 73110

== ENCOUNTER 2022-10-06 11:42 | Emergency (ER) | payer MEDICAID, SELFPAY ==
[2022-10-06 12:05] VITALS: BP 154/102; PULSE 89; RESP 16; TEMP 36.6; O2SAT 97
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
[2022-10-06 12:46] VITALS: BP 154/102; PULSE 89; RESP 16; TEMP 36.6; O2SAT 97
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
[2022-10-06 13:10] LABS: Add Urine Microscopic? NO; Charge for UA Resulting for Rev
[2022-10-06 13:12] LABS: Bilirubin Urine Neg (Negative); Blood Urine Neg (Negative); Glucose Urine UA Norm (Normal); Ketones Urine Negative (Negative); Leukocyte Esterase Urine Negative (Negative); Nitrate Urine Negative (Negative); Protein Urine Neg (Negative); Urine Appearance Clear (CLEAR); Urine Color Straw (Yellow); Urobilinogen Urine Norm (Negative); pH Urine 5 (5-7)
[2022-10-06 13:30] VITALS: BP 154/102; PULSE 89; RESP 16; TEMP 36.6; O2SAT 97
[2022-10-06 13:34] LABS: Basophils # 0.1 10^3/uL (0.0-0.1); Basophils % 0.8 %; Eosinophils # 0.1 10^3/uL (0.0-0.8); Eosinophils % 1.3 %; Hematocrit 50.7 % (42.0-52.0); Hemoglobin 16.3 g/dL (11.7-16.6); Lymphocytes # 3.4 10^3/uL (0.8-4.8); Lymphocytes % 32.2 %; Mean Corpuscular HGB Conc 32.1 g/dL (30.0-36.0); Mean Corpuscular Hemoglobin 29.9 pg (28.0-34.0); Mean Platelet Volume 10.2 fL (7.4-10.4); Monocytes # 0.7 10^3/uL (0.2-0.9); Monocytes % 6.3 %; Neutrophils # 6.28 10^3/uL (1.8-7.7); Neutrophils % 59.1 %; Nucleated Red Blood Cells % 0 %; Platelet Count 293 10^3/cmm (130-400); Red Blood Count 5.45 10^6/uL (4.1-5.3); Red Cell Distribution Width 13.2 % (12.1-15.1); White Blood Count 10.6 10^3/uL (4.0-10.0)
[2022-10-06 13:52] LABS: Alanine Aminotransferase < 5 U/L (0-41); Albumin Level 4.2 g/dL (3.5-5.2); Alkaline Phosphatase 109 U/L (40-130); Anion Gap 13.5 (5-19); Aspartate Amino Transferase 13 U/L (0-40); Blood Urea Nitrogen 7 mg/dL (6-20); Calcium 9.3 mg/dL (8.5-10.5); Carbon Dioxide 26 mmol/L (22-29); Chloride 102 mmol/L (98-107); Globulin 3.2 g/dL (1.3-4.6); Glomerular Filtration Rate 77.6 mL/min (90-130); Glucose 93 mg/dL (65-115); Osmolality Calculated 282 mOsm/kg (285-295); Potassium 4.5 mmol/L (3.5-5.1); Sodium 137 mmol/L (136-145); Total Bilirubin 0.2 mg/dL (0.15-1.2); Total Protein 7.4 g/dL (6.6-8.7)
[2022-10-06 14:32] VITALS: BP 154/102; PULSE 89; RESP 16; TEMP 36.6; O2SAT 97
== END 2022-10-06 14:30 | disposition home or self-care (01) ==
PROVIDERS: Emergency Provider Family Medicine; PCP Nurse Practitioner Family
DX: S16.1XXA Strain of muscle, fascia and tendon at neck level, initial encounter (principal); V40.5XXA Car driver injured in collision with pedestrian or animal in traffic accident, initial encounter
CPT/HCPCS: 71045; 72040; 80053; 81003; 85025; 99283

== ENCOUNTER 2022-10-15 15:29 | Outpatient (CLI) | payer MEDICAID, SELFPAY ==
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
== END 2022-10-15 15:30 | disposition home or self-care (01) ==
LOC: RAD 15:39
PROVIDERS: PCP Nurse Practitioner Family; Visit Provider Family Medicine
DX: M54.2 Cervicalgia (principal); V49.40XA Driver injured in collision with unspecified motor vehicles in traffic accident, initial encounter
CPT/HCPCS: 72040; 72072

== ENCOUNTER 2022-12-25 10:51 | Outpatient (CLI) | payer MEDICAID, SELFPAY ==
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
== END 2022-12-25 10:52 | disposition home or self-care (01) ==
PROVIDERS: PCP Nurse Practitioner Family; Visit Provider Nurse Practitioner Family
DX: M54.2 Cervicalgia (principal)
CPT/HCPCS: 72141; 72146; 72148

== ENCOUNTER → 2023-01-08 14:48 | Outpatient (BNVA) | payer MEDICAID, SELFPAY | PROVIDERS: PCP Nurse Practitioner Family; Visit Provider Specialist | DX: M25.531 Pain in right wrist (principal); M79.89 Other specified soft tissue disorders | CPT/HCPCS: 73110; 99204 ==

== ENCOUNTER → 2023-01-09 11:34 | Outpatient (BNVA) | payer MEDICAID, SELFPAY | PROVIDERS: PCP Nurse Practitioner Family; Visit Provider Physician Assistant | DX: M47.812 Spondylosis without myelopathy or radiculopathy, cervical region (principal); M51.37 Other intervertebral disc degeneration, lumbosacral region; M47.816 Spondylosis without myelopathy or radiculopathy, lumbar region | CPT/HCPCS: 99204 ==

== ENCOUNTER 2023-03-04 12:08 | Outpatient (CLI) | payer MEDICAID, SELFPAY ==
--- NOTE | 2023-03-04 12:14 | MR_ITS ---
WS: [id number] MRI RIGHT FOREARM without CONTRAST. COMPARISON: Wrist radiograph 01/08/2023 Multiplanar, multisequence imaging is performed without contrast. Lobulated cystic mass along the dorsal lateral surface of the radius measures 1.7 x 2.4 cm and extend s over a length of 3.0 cm. There is a small cystic extension over the dorsal surface of the wrist roly ng the surface of the scaphoid. Mass is predominantly centered between the first and second compartme nt extensor tendons. Distal extent of the ganglion cannot be completely determined. A ganglion probab ly arises from the intercarpal spaces. No additional cystic masses are identified. The exact origin o f this ganglion is not identified. MR/MR forearm RT wo con* [id number] IMPRESSION: Soft tissue mass along the dorsal lateral wrist is cystic and consistent with a ganglion. Mass measures 1.7 x 2.4 cm and extends over length of 3.0 cm. Mass i s predominantly centered between the first and second compartment.
== END 2023-03-04 12:09 | disposition home or self-care (01) ==
LOC: RAD 12:08
PROVIDERS: PCP Nurse Practitioner Family; Visit Provider Specialist
DX: M79.89 Other specified soft tissue disorders (principal)
CPT/HCPCS: 73218

== ENCOUNTER → 2023-05-07 14:51 | Outpatient (BNVA) | payer MEDICAID, SELFPAY | PROVIDERS: PCP Nurse Practitioner Family; Visit Provider Specialist | DX: M79.89 Other specified soft tissue disorders (principal) | CPT/HCPCS: 99213 ==

== ENCOUNTER 2023-09-05 07:19 | Outpatient (CLI) | payer MEDICAID, SELFPAY ==
--- NOTE | 2023-09-05 07:25 | CT_ITS ---
WS: [id number] CT chest wo con [id number] HISTORY: LUNG NODULE/NICOTINE ABUSE/DEPENDENCE, history of 7 mm nodule in the RIGHT upper lobe seen o n a prior outside CT. TECHNIQUE: Axial imaging performed through the thorax. Coronal and sagittal reformats are submitted. All CT scans at [facility] use at least one of these dose optimization techniques: automated exposure control; mA and/or kV adjustment per patient size (includes targeted exams where dose is mat ched to clinical indication); or iterative reconstruction. CONTRAST: None DLP: 281.11 mGy.cm COMPARISON: None available. Lungs and central airway: Moderate hyperinflation with emphysema. No mass or pulmonary nodules are id entified. No pneumonia. No endobronchial lesion. Pleura: Normal. No pleural effusion. Heart and pericardium: Normal size heart with no pericardial effusion. Mediastinum and phyllis: Small mediastinal and hilar lymph nodes. No adenopathy. Vessels: Normal size aortic and pulmonary artery. No coronary artery calcifications. Chest wall and lower neck: No soft tissue masses. Upper abdomen: No adrenal mass. No abnormality identified. Osseous structures: No destructive process. IMPRESSION: 1. Hyperinflated lungs from emphysema. 2. No pulmonary mass or nodules identified.
== END 2023-09-05 07:20 | disposition home or self-care (01) ==
LOC: RAD 07:20
PROVIDERS: PCP Nurse Practitioner Family; Visit Provider Family Medicine
DX: J43.9 Emphysema, unspecified (principal); R91.8 Other nonspecific abnormal finding of lung field; F17.200 Nicotine dependence, unspecified, uncomplicated
CPT/HCPCS: 71250

== ENCOUNTER → 2023-09-22 12:54 | Outpatient (BNVA) | payer MEDICAID, SELFPAY | PROVIDERS: PCP Nurse Practitioner Family; Visit Provider Surgery | DX: Z12.11 Encounter for screening for malignant neoplasm of colon (principal) | CPT/HCPCS: 99024; 99203 ==

== ENCOUNTER 2023-11-13 09:27 | Day surgery (SDC) | payer MEDICAID, SELFPAY ==
[2023-11-13 09:42] VITALS: BP 125/86; PULSE 83; RESP 18; TEMP 36.6; O2SAT 97; BMI 20.5
[2023-11-13] MEDS: sodium chloride 0.9% 1,000 ML 30 ML IV (10:18)
--- NOTE | 2023-11-13 10:20 | P.ANESASSM_ITS ---
Pre-Anesthetic Assessment Height/Weight: Height 1.73 m Weight 61.235 kg Temp Pulse Resp BP Pulse Ox O2 Del Method 97.8 F 83 18 125/86 97 Room Air 11/13/23 09:42 11/13/23 09:42 11/13/23 09:42 11/13/23 09:42 11/13/23 09:42 11/13/23 09:42 Preop Diagnosis: screening Operation Date: 11/13/23 10:35 Proposed Procedures p 70339 colon G0121 screen colon A risk Z12.11(Not Applicable) - Jose Alfredo Omalley MD Last intake: Intake Last Liquid Date 11/12/23 Last Liquid Time 23:30 Last Solid Date 11/11/23 Last Solid Time 18:00 Social Alcohol and Tobacco daily MJ; including today. Smoked it this morning. Exam alert, oriented x 3, clear to auscultation bilaterally and regular rate & rhythm Airway Submandibular: within normal limits Cervical ROM: within normal limits Mallampati: Class I Dentition: other (edentulous) History/ROS No significant history except as noted Pulmonary Chronic Obstructive Pulmonary Disease and Shortness of Breath (occasionally but reports that is his baseline) CV/HEM Atrial Fibrillation and Hypertension None reported Hepatic None reported GI None reported Metabolic None reported Musc/skel Osteoarthritis/DJD Neuropsych Anxiety, Bipolar, Depression and Headache Anesthetic Plan ASA status: 3 Anesthesia: Anesthesia Evaluation and MAC Medications/Allergies Home Medications Medication Instructions Recorded Confirmed Last Taken Type nitroglycerin 0.4 mg sublingual 0.4 mg sublingual Q5M PRN Chest 11/21/20 11/11/23 Unknown History tablet (Nitrostat) Pain carvedilol 6.25 mg tablet 6.25 mg PO BID 30 days #60 tabs 03/05/21 11/11/23 11/10/23 Rx lisinopril 10 1 tab PO DAILY see pharmacy 04/04/21 11/11/23 11/10/23 History mg-hydrochlorothiazide 12.5 mg comments-pt unsure if suppose to tablet take filled on 03/07/21 30d/s diclofenac sodium 75 mg 75 mg PO Q12H PRN pain #20 tabs 10/06/22 11/11/23 Unknown Rx tablet,delayed release tizanidine 4 mg tablet 4 mg PO Q6H PRN muscle spasticity 10/06/22 11/11/23 Unknown Rx #20 tabs Allergies Allergy/AdvReac Type Severity Reaction Status Date / Time alprazolam [From Xanax] AdvReac Intermediate ADR-Agitate Verified 09/22/23 13:05 d Current Medications Generic Name Dose Route Start Last Admin Trade Name Freq PRN Reason Stop Dose Admin Sodium Chloride 1,000 mls @ 30 mls/hr 11/13/23 09:45 11/13/23 10:18 Sodium Chloride 0.9% IV 30 mls/hr .Q24H LOUIE Administration PFSH Anesthesia Medical History Bilateral varicoceles Bipolar 1 disorder History of hypertension History of kidney stones Hx of chest pain Hx of migraine headaches OCD (obsessive compulsive disorder) Schizo affective schizophrenia Tobacco use Ventricular arrhythmia Surgical History 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, right hand Hx of shoulder surgery S/P cystoscopy with ureteral stent placement (04/05/21) with stone extraction and dilatation of ureteral stricture, Dr Gandhi S/P left inguinal hernia repair (~2017) Laparoscopic Transabdominal preperitoneal (CASSIA) approach Family History Mother , at age 65 Myocardial infarction CAD (coronary artery disease) Diabetes Lung disease Stroke Father , at age 65 Myocardial infarction Stroke Father CAD (coronary artery disease) Grandfather Stroke Other FH: [place]'s chorea Denies family history of Clotting disorder Dementia Chronic kidney disease (CKD) Suicide Anesthesia complication Bleeding disorder Cancer Social History (Updated 09/22/23 @ 13:25 by Prudence Lanier LPN) Smoking and tobacco/nicotine status: current every day tobacco/nicotine user cigarettes Alcohol intake: former Substance/Drug Use: current Substance/Drug use frequency: daily Marital status: Current occupational status: disabled Data Anesthesia Cardiac Studies: Stress Echocardiogram 02/12/21
--- NOTE | 2023-11-13 10:42 | W.PM.OPSFHP ---
Same Day Surgery H&P Indication for Procedure/HPI DATE OF PROCEDURE: November 13, 2023 CHIEF COMPLAINT/INDICATIONFOR SURGICAL PROCEDURE: need for screening colonoscopy PREOP DIAGNOSIS: screening PLANNED PROCEDURE: Operation Date: 11/13/23 10:35 Proposed Procedures p [id number] colon G0121 screen colon A risk Z12.11(Not Applicable) - Jose Alfredo Omalley MD Medications/Allergies* Home Medications Medication Instructions Recorded Confirmed Type nitroglycerin 0.4 mg sublingual 0.4 mg sublingual Q5M PRN Chest 11/21/20 11/11/23 History tablet (Nitrostat) Pain lisinopril 10 1 tab PO DAILY see pharmacy 04/04/21 11/11/23 History mg-hydrochlorothiazide 12.5 mg comments-pt unsure if suppose to tablet take filled on 03/07/21 30d/s Allergies/Adverse Reactions Allergy/AdvReac Type Severity Reaction Status Date / Time alprazolam [From Xanax] AdvReac Intermediate ADR-Agitate Verified 09/22/23 13:05 d Current Medications: Generic Name Dose Route Start Last Admin Trade Name Freq PRN Reason Stop Dose Admin Sodium Chloride 1,000 mls @ 30 mls/hr 11/13/23 09:45 11/13/23 10:18 Sodium Chloride 0.9% IV 30 mls/hr .Q24H LOUIE Administration Pertinent History/Comorbid Conditions* Medical History (Updated 01/10/23 @ 17:23 by Kylah Watts MD) History of kidney stones Bilateral varicoceles Ventricular arrhythmia History of hypertension Hx of chest pain Tobacco use Hx of migraine headaches Bipolar 1 disorder Schizo affective schizophrenia OCD (obsessive compulsive disorder) Surgical History (Updated 04/20/21 @ 16:57 by Valdemar Gandhi MD) S/P cystoscopy with ureteral stent placement (04/05/21) with stone extraction and dilatation of ureteral stricture, Dr Gandhi S/P left inguinal hernia repair (~2016) Laparoscopic Transabdominal preperitoneal (CASSIA) approach Hx of shoulder surgery 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, right hand Family History (Updated 12/26/20 @ 15:23 by Kaylee Campos RN) Father, at age 65 Mother, at age 65 Diabetes Mother FH: Gisselle's chorea CAD (coronary artery disease) Mother Father Myocardial infarction Mother Father Lung disease Mother Stroke Mother Father Grandfather Denies family history of Clotting disorder Dementia Chronic kidney disease (CKD) Suicide Anesthesia complication Bleeding disorder Cancer Social History Smoking and tobacco/nicotine status: current every day tobacco/nicotine user cigarettes Alcohol intake: former Substance/Drug Use: current Substance/Drug use frequency: daily Marital status: Current occupational status: disabled Pertinent Exam Findings alert, oriented x 3, clear to auscultation bilaterally and regular rate & rhythm Recommendations Surgery/Procedure today Coding Level of Care Code Acute Code for [facility]
[2023-11-13 11:11] VITALS: BP 107/67; PULSE 79; RESP 16; TEMP 36.1; O2SAT 94
[2023-11-13 11:31] VITALS: BP 129/88; PULSE 78; RESP 18; O2SAT 99
== END 2023-11-13 11:37 | disposition home or self-care (01) ==
PROVIDERS: PCP Nurse Practitioner Family; Visit Provider Surgery
PROC: 0DJD8ZZ Inspection of Lower Intestinal Tract, Via Natural or Artificial Opening Endoscopic (ICD-10-PCS; CPT 45378; principal; 2023-11-13 10:35)
DX: Z12.11 Encounter for screening for malignant neoplasm of colon (principal); F17.210 Nicotine dependence, cigarettes, uncomplicated; K64.8 Other hemorrhoids; J44.9 Chronic obstructive pulmonary disease, unspecified; I48.91 Unspecified atrial fibrillation; I10 Essential (primary) hypertension; M19.90 Unspecified osteoarthritis, unspecified site
CPT/HCPCS: 45378; J2704; J3010; J7030

== ENCOUNTER → 2023-12-16 14:24 | Outpatient (BNVA) | payer MEDICAID, SELFPAY | PROVIDERS: PCP Nurse Practitioner Family; Visit Provider Orthopaedic Surgery | DX: M54.2 Cervicalgia (principal) | CPT/HCPCS: 72050; 99204 ==

== ENCOUNTER → 2024-03-16 13:30 | Outpatient (BNVA) | payer MEDICAID, SELFPAY | PROVIDERS: PCP Nurse Practitioner Family; Visit Provider Orthopaedic Surgery | DX: M48.062 Spinal stenosis, lumbar region with neurogenic claudication (principal); M54.2 Cervicalgia | CPT/HCPCS: 72050; 99214 ==

== ENCOUNTER 2024-09-20 13:05 | Outpatient (CLI) | payer OTHER, SELFPAY ==
--- NOTE | 2024-09-20 13:45 | MR_ITS ---
WS: [id number] MRI CERVICAL SPINE NONCONTRAST TECHNIQUE: Sagittal T1, T2 and STIR imaging. Axial T2, gradient, and fiesta imaging. CLINICAL INFORMATION: neck pain COMPARISON: MRI 12/25/2022 FINDINGS: Straightening of the normal cervical lordosis. Mild disc bulging at C2-C3 and C3-C4. Cord signal appe ars normal. C2-C3: Mild disc osteophyte complex with endplate ridging. Mild facet arthropathy. Spinal canal and f oramen are patent. C3-C4: Mild disc osteophyte complex with endplate ridging. Mild facet arthropathy. Mild LEFT bony for aminal narrowing. C4-C5: Mild disc osteophyte ridging. Spinal canal is patent. Moderate facet arthropathy. Mild LEFT gr eater than RIGHT foraminal narrowing. C5-C6: Disc osteophyte complex with endplate ridging and uncovertebral joint hypertrophy. Moderate LE FT and mild RIGHT bony foraminal narrowing. Moderate facet arthropathy. C6-C7: Mild endplate ridging. Mild LEFT greater than RIGHT bony foraminal narrowing. Moderate facet a rthropathy. C7-T1: Mild LEFT and no significant RIGHT foraminal narrowing. Spinal canal is patent. Visualized brain stem structures: Normal. Prevertebral soft tissues: Normal. MR/MR cervical spin wo con* [id number] IMPRESSION: 1. Straightening of the normal cervical doses with mild spondylitic changes. 2. No significant central canal stenosis. Cord signal is normal. 3. Moderate LEFT C5-C6 bony foraminal narrowing appears slightly progressed co mpared to previous. 4. No other significant interval changes 5. Mild bony foraminal narrowing appears stable at LEFT C3-4, LEFT C4-C5, RIGH T C5-C6, and LEFT C6-7. 6. Moderate facet arthropathy C4-C5 and C5-C6.
== END 2024-09-20 13:06 | disposition home or self-care (01) ==
LOC: RAD 13:06
PROVIDERS: PCP Nurse Practitioner Family; Visit Provider Orthopaedic Surgery
DX: M47.892 Other spondylosis, cervical region (principal); M99.61 Osseous and subluxation stenosis of intervertebral foramina of cervical region; M25.78 Osteophyte, vertebrae
CPT/HCPCS: 72141

== ENCOUNTER → 2024-09-28 14:38 | Outpatient (BNVA) | payer MEDICAID, SELFPAY | PROVIDERS: PCP Nurse Practitioner Family; Visit Provider Orthopaedic Surgery | DX: M54.9 Dorsalgia, unspecified (principal); Z09 Encounter for follow-up examination after completed treatment for conditions other than malignant neoplasm | CPT/HCPCS: 99214 ==

== ENCOUNTER → 2025-01-05 08:53 | Outpatient (BNVA) | payer MEDICAID, SELFPAY | PROVIDERS: PCP Nurse Practitioner Family; Referring Provider Orthopaedic Surgery; Visit Provider Nurse Practitioner Family | DX: M47.812 Spondylosis without myelopathy or radiculopathy, cervical region (principal); M54.12 Radiculopathy, cervical region; G89.29 Other chronic pain; F17.210 Nicotine dependence, cigarettes, uncomplicated | CPT/HCPCS: 99214 ==

== ENCOUNTER → 2025-01-10 14:02 | Outpatient (BNVA) | payer MEDICAID, SELFPAY | PROVIDERS: PCP Nurse Practitioner Family; Visit Provider Nurse Practitioner Family | DX: M79.18 Myalgia, other site (principal); M54.12 Radiculopathy, cervical region; M47.812 Spondylosis without myelopathy or radiculopathy, cervical region; G89.29 Other chronic pain; F17.210 Nicotine dependence, cigarettes, uncomplicated | CPT/HCPCS: 20553; 99214; J1010; J3490 ==

== ENCOUNTER → 2025-01-24 14:02 | Outpatient (BNVA) | payer MEDICAID, SELFPAY | PROVIDERS: PCP Nurse Practitioner Family; Visit Provider Nurse Practitioner Family | DX: M54.12 Radiculopathy, cervical region (principal); G89.29 Other chronic pain; M47.812 Spondylosis without myelopathy or radiculopathy, cervical region | CPT/HCPCS: 99213 ==

== ENCOUNTER 2025-04-21 11:50 | Outpatient (CLI) | payer MEDICAID, SELFPAY ==
--- NOTE | 2025-04-21 11:56 | US_ITS ---
WS: [id number] Bilateral renal ultrasound, 04/21/2025 Clinical Data: LEFT LOWER QUADRANT ABDOMINAL PAIN Comparison: Abdominal ultrasound, 08/30/2017. Findings: The right kidney measures 9.4 cm x 4.5 cm x 4.1 cm and the left kidney is 9.9 cm x 4.6 cm x 4.3 cm. There are no cysts, masses or hydronephrosis. The renal cortical margin is normal. No renal calculi are seen. The abdominal aorta and inferior vena cava show no vascular abnormalities. The bladder was scanned and was not remarkable. The prostate is enlarged. US/US renal BI* [id number] Impression: Negative bilateral renal ultrasound.
--- NOTE | 2025-04-21 12:14 | USR_ITS ---
PROCEDURE INFORMATION: Exam: US Scrotum Exam date and time: 04/21/2025 12:41 PM Age: 60 years old Clinical indication: Scrotum pain; Additional info: Pain in scrotum/epididiymis TECHNIQUE: Imaging protocol: Real-time ultrasound of the scrotum and contents with color Doppler and image documentation. COMPARISON: No relevant prior studies available. FINDINGS: Right testicle: The right testis is unremarkable. The right testis measures 3.4 x 1.9 x 2.5 cm. No testicular mass. Normal arterial and venous waveforms on Doppler imaging. Left testicle: The left testis is unremarkable. The left testis measures 3.1 x 1.5 x 2.3 cm. No testicular mass. Normal arterial and venous waveforms on Doppler imaging. Epididymides: Stable 4 x 3 x 4 mm right epididymal head cyst. Scrotum/soft tissues: Normal. No hydroceles. US/US scrotum [id number] IMPRESSION: 1. Stable tiny right epididymal head cyst. 2. The right and left testes are unremarkable.
== END 2025-04-21 11:51 | disposition home or self-care (01) ==
PROVIDERS: PCP Family Medicine; Visit Provider Family Medicine
DX: R10.32 Left lower quadrant pain (principal); N50.3 Cyst of epididymis; N50.82 Scrotal pain
CPT/HCPCS: 76770; 76870

== ENCOUNTER → 2025-04-26 14:05 | Outpatient (BNVA) | payer MEDICAID, SELFPAY | PROVIDERS: PCP Family Medicine; Visit Provider Nurse Practitioner Family | DX: M54.12 Radiculopathy, cervical region (principal); G89.29 Other chronic pain; M47.812 Spondylosis without myelopathy or radiculopathy, cervical region | CPT/HCPCS: 99214 ==

== ENCOUNTER → 2025-05-17 13:21 | Outpatient (BNVA) | payer MEDICAID, SELFPAY | PROVIDERS: PCP Family Medicine; Visit Provider Surgery | DX: R10.32 Left lower quadrant pain (principal); N50.3 Cyst of epididymis; N50.819 Testicular pain, unspecified | CPT/HCPCS: 99202 ==

== ENCOUNTER → 2025-07-18 13:35 | Outpatient (BNVA) | payer MEDICAID, SELFPAY | PROVIDERS: PCP Family Medicine; Visit Provider Nurse Practitioner Family | DX: M54.9 Dorsalgia, unspecified (principal); G89.29 Other chronic pain; M47.22 Other spondylosis with radiculopathy, cervical region | CPT/HCPCS: 99214 ==